=== PATIENT | male | born 1975 | race Caucasian/White ===

== ENCOUNTER 2017-08-20 04:02 | Inpatient (IN) | payer OTHER ==
[~2017-08-20] VITALS: Ht 180.3 cm; Wt 117.9 kg
[2017-08-20] VITALS (17 sets, daily range): BP systolic 107–170; BP diastolic 69–88
[~2017-08-20 04:02] MED LIST: ASPIRIN325 PO; CARVEDILOL12.5 MG PO; CELEXA40 MG PO; CLONIDINE0.1 PO; DEPO-TESTO100 MG/1 M IM; DEPO-TESTO200 MG/1 M IM; FISH OIL 1,001000 M2 PO; GEMFIBROZIL 60600 M1 PO; GLUCOPHAGE1000 MG PO; INVOKANA300 MG PO; KEFLEX500 MG PO; LASIX 20 MG TAB20 MG PO; LEVOTHYROXINE0.05 MG PO; LIPOFEN150 MG PO; LISINOPRIL20 MG PO; MUCINEX TA600 MG/TA2 PO; NAPROSYN500 MG PO; NORCO 5-325 TA1 EACH; NORCO 5-325 TA1 EACH PO; OMEGA-31000 M1 PO; OMEPRAZOLE40 MG PO; PRILOSEC40 MG PO; RISPERDAL2 MG PO; SIMVASTATIN40 MG PO; SYNTHROID75 MCG PO; TRICOR145 MG PO; TYLENOL325 MG PO; UNICOMPLEX M TA1 TA1 PO; ZESTORETIC 20-1 EAC2 PO; ZESTORETIC 20-1 EAC3 PO
[2017-08-20] MEDS ORDERED: HUMALOG100 UNIT/1 SUBQ (04:09)
[2017-08-20 04:21] LABS: ABSOLUTE BASOPHILS 0.1 thou/uL (0.0-0.2); ABSOLUTE EOSINOPHILS 0.1 thou/uL (0.0-0.7); ABSOLUTE LYMPHOCYTES 2.7 thou/uL (0.8-5.3); ABSOLUTE MONOCYTES 0.7 thou/uL (0.0-1.2); ABSOLUTE NEUTROPHILS 4.3 thou/uL (1.6-8.1); EOSINOPHILS 1.9 %; HEMATOCRIT 48.5 % (42.0-52.0); HEMOGLOBIN 16.9 gm/dL (14.0-18.0); LYMPHOCYTES 33.5 %; MCH 25.8 pg (26.0-34.0); MCHC 34.8 g/dL (28.0-37.0); MCV 73.9 fL (80.0-100.0); MONOCYTES 9.3 %; MPV 7.4 fl. (7.2-11.1); NUCLEATED RBCS 0 /100WBC; PLATELET COUNT* 352 thou/uL (150-400); POLYS 54.3 %; RBC 6.56 mil/uL (4.50-6.00); RDW-CV 16.7 % (10.5-14.5)
[2017-08-20 05:17] LABS: POTASSIUM 4.5 mmol/L (3.5-5.1)
[2017-08-20 06:31] LABS: ALBUMIN 3.6 g/dL (3.4-5.0); CALCIUM 6.3 mg/dL (8.5-10.1); TOTAL BILIRUBIN 0.4 mg/dL (<0.1-1.0); TOTAL PROTEIN 5.5 g/dL (6.4-8.2)
[2017-08-20 06:32] LABS: TROPONIN-I LEVEL 0.06 ng/mL (<0.06)
[2017-08-20 11:19] LABS: INR 0.9; PROTIME 11.8 Seconds (9.20-11.50)
--- NOTE | 2017-08-20 12:45 | NUR ---
PT ARRIVED ON THE UNIT ASSESSED AND DOCUMENTED. REPORT TAKEN FROM DURAL MECHANICCLIVE IVAN. PT IS ACCOMPANIED BY HIS LIVE IN GIRLFRIEND. HE IS A&O WITH NO C/O PAIN. NS AT 100 PER HOUR. PT IS TRACING ST ON CARDIAC MONITER WITH PVC'S HR 110. PT C/O FATIGUE. HE IS ON ROOM AIR. PT REFUSES SCD'S. FALL PROTOCOL SIGNED. BED IN LOW POSITION CALL LIGHT IS IN REACH.WM.
--- NOTE | 2017-08-20 18:11 | NUR ---
ASSUMED CARE OF PT ASSESSED AND DOCUMENTED. SEE CHART. PT TAKEN TO THE MATERIAL CREW SUPERVISOR AND IS NOW ON POST CATH MONITERING. PT HAD 1 STENT PLACED THROUGH THR R RADIAL. PT IS TO BE NPO TONIGHT FOR STENT PLACEMENT TOMORROW. METFORMIN IS TO BE HELD FOR 48 HOURS AFTER. PT HAS FAMILY AT [place]IDE. EDUCATION GIVEN ON DEMAND. HOURLY ROUNDING COMPLETE.VSS WNL.
--- NOTE | 2017-08-20 18:23 | 2DMMODE ---
[place] [address] 2 D/M-MODE ECHOCARDIOGRAM Name: KYLE LBAIR Room: [address] IN [facility]#: [id number] Admission: 08/20/17 Attend Phys: Darian Mckee, Discharge: Date of : 73 Date of Service: 08/20/17 1823 Report #: [id number] THIS REPORT FOR: //name// APPROVED REPORT Study performed: 08/20/2017 14:25:17 EXAM: Comprehensive 2D, Doppler, and color-flow Echocardiogram Patient Location: In-Patient Room #: [facility] Status: routine BSA: 2.36 HR: 101 bpm BP: 107/75 mmHg Rhythm: NSR Other Information Study Quality: Good Indications Dyspnea 2D Dimensions LVEF(%): 77.78 (>50%) IVSd: 11.88 (7-11mm) LVOT Diam: 21.33 (18-24mm) LVDd: 41.95 mm PWd: 9.77 (7-11mm) Ascending Ao: 30.48 (22-36mm) LVDs: 22.64 (25-40mm) Aortic Root: 29.55 mm Carcamo's LVEF: 77.78 % Volumes Left Atrial Volume (Systole) LA ESV Index: 22.60 mL/m2 Aortic Valve AoV Peak Marc.: 1.30 m/s AO Peak Gr.: 6.71 mmHg LVOT Max P.78 mmHg AO Mean Gr.: 4.10 mmHg LVOT Mean P.91 mmHg LVOT Max V: 1.48 m/s AO V2 VTI: 21.77 cm LVOT Mean V: 0.90 m/s CLAUDIA (VTI): 4.12 cm2 LVOT V1 VTI: 25.06 cm Mitral Valve E/A Ratio: 1.11 [place] [address] 2 D/M-MODE ECHOCARDIOGRAM Name: KYLE BLAIR Room: [address] IN .R.#: [id number] Admission: 08/20/17 Attend Phys: Darian Mckee, Discharge: Date of : 73 Date of Service: 08/20/17 1823 Report #: [id number] MV Decel. Time: 292.14 ms MV E Max Marc.: 0.74 m/s MV PHT: 84.72 ms MVA (PHT): 2.60 cm2 TDI E/Lateral E': 3.89 E/Medial E': 8.22 Medial E' Marc.: 0.09 m/s Lateral E' Marc.: 0.19 m/s Pulmonary Valve PV Peak Marc.: 1.08 m/s PV Peak Gr.: 4.71 mmHg Left Ventricle The left ventricle is normal size. There is normal LV segmental wall motion. Borderline concentric left ventricular hypertrophy. Left ventricular systolic function is normal. The left ventricular ejection fraction is within the normal range. LVEF is 65%. The left ventricular diastolic function is normal. Right Ventricle The right ventricle is normal size. The right ventricular systolic function is normal. Atria The left atrium size is normal. The right atrium size is normal. Aortic Valve Aortic valve leaflets are mildly thickened. No aortic regurgitation is present. There is no aortic valvular stenosis. Mitral Valve The mitral valve is normal in structure. Trace mitral regurgitation. No evidence of mitral valve stenosis. Tricuspid Valve The tricuspid valve is normal in structure. Unable to assess PA pressure. Trace tricuspid regurgitation. Pulmonic Valve The pulmonary valve is normal in structure. There is no pulmonic valvular regurgitation. Great Vessels The aortic root is normal in size. IVC [place] [address] 2 D/M-MODE ECHOCARDIOGRAM Name: ROSSYKYLE MILLER Jaycob Room: [address] IN [facility]#: [id number] Admission: 08/20/17 Attend Phys: Darian Mckee, Discharge: Date of : 73 Date of Service: 08/20/17 1823 Report #: [id number] collapses with >50% inspiration Pericardium There is no pericardial effusion. <Conclusion> The left ventricle is normal size. Borderline concentric left ventricular hypertrophy. Left ventricular systolic function is normal. The left ventricular ejection fraction is within the normal range. LVEF is 65%. The right ventricle is normal size. The left atrium size is normal. Aortic valve leaflets are mildly thickened. No aortic regurgitation is present. There is no aortic valvular stenosis. The mitral valve is normal in structure. Trace mitral regurgitation. The tricuspid valve is normal in structure. IVC is normal in size and collapses with >50% inspiration There is no pericardial effusion. There is normal LV segmental wall motion. <ELECTRONICALLY SIGNED> By: Michael Burnham MD, FACC 08/20/171822 22 22 Michael Burnham MD, FACC /INF
[2017-08-21] VITALS (14 sets, daily range): BP systolic 118–140; BP diastolic 68–93
[2017-08-21 05:22] LABS: HEMATOCRIT 45.7 % (42.0-52.0); HEMOGLOBIN 15.1 gm/dL (14.0-18.0); MCH 24.4 pg (26.0-34.0); MCV 73.9 fL (80.0-100.0); MPV 7.2 fl. (7.2-11.1); RBC 6.18 mil/uL (4.50-6.00); RDW-CV 16.8 % (10.5-14.5); WBC 7.3 thou/uL (4.0-11.0)
[2017-08-21 05:49] LABS: ALBUMIN 3.4 g/dL (3.4-5.0); ALKALINE PHOSPHATASE 42 U/L (46-116); ANION GAP 12 mmol/L (7-16); BUN 20 mg/dL (7-18); CHLORIDE 98 mmol/L (98-107); CO2 22 mmol/L (21-32); CREATININE 0.9 mg/dL (0.6-1.3); POTASSIUM 3.9 mmol/L (3.5-5.1); SODIUM 132 mmol/L (136-145); TOTAL BILIRUBIN 0.7 mg/dL (<0.1-1.0); TROPONIN-I LEVEL <0.06 ng/mL (<0.06)
[2017-08-21 06:01] LABS: CHOLESTEROL 275 mg/dL (<200); HDL CHOLESTEROL 16 mg/dL (>40); MAGNESIUM 1.7 mg/dL (1.8-2.4); TC:HDL 17.2 Ratio (Not establshd)
[2017-08-21 06:06] LABS: CMV IgM Abs <30.0 AU/mL (0.0-29.9)
[2017-08-21 06:13] LABS: TRIGLYCERIDE 3025 mg/dL (<150); VLDL 605 mg/dL (<40)
[2017-08-21 06:14] LABS: LDL CHOLESTEROL ND mg/dL (<100)
[2017-08-21 06:15] LABS: SERUM ASSESSMENT Moderate Lipemia
--- NOTE | 2017-08-21 06:16 | NUR ---
ASSUMED CARE OF PATIENT AT 1900 THE PATIENT REMAINS SR ON THE MONITOR O2 SAT MAINTAINED ON RA UTILIZES HOME C/BIPAP AT NIGHT CONTINUES TO BE UP AD BERTRAM POST CARDIAC CATH PROCEDURE PROTOCOL ELEVATED BLOOD GLUCOSE AT HS METFORMIN PRESENTLY BEING HELD PER PATIENT, PATIENT REPORTS USE OF LONG ACTING INSULIN AT HOME ET STATES PRIOR TO ACCU CHECK HE WAS EATING GRILLED CHICKEN NUGGETS AND DIPPING SAUCE ALSO HAS AN EXTRA LARGE FOUNTAIN DRINK AT BEDSIDE THE ROUTINE REGIMEN CONTINUES TO BE EFFECTIVE FOR SX MANAGEMENT THE PATIENT IS PROGRESSING TOWARDS GOALS HE IS WITHOUT S/SX OF ACUTE DISTRESS SAFETY INTERVENTIONS CONTINUE BED LOWERED WHEELS LOCKED CALL LIGHT IN REACH SIDE RAILS UP REPORT TO BE GIVEN TO ONCOMING RN
[2017-08-21 06:39] LABS: SGPT 23 U/L (30-65)
[2017-08-21 06:44] LABS: GLUCOSE 283 mg/dL (70-99)
[2017-08-21 07:05] LABS: SGOT 19 U/L (15-37)
--- NOTE | 2017-08-21 09:28 | NUR ---
ASSUMED CARE OF PATIENT AFTER REPORT THIS MORNING. PATIENT SLEEPING, EASY TO AROUSE, ORIENTED APPROPRIATELY. PHYSICAL ASSESSMENT COMPLETED AND CHARTED. VITAL SIGNS STABLE. OXYGEN SATURATION WITHIN NORMAL LIMITS ON CPAP. SCHEDULED MEDICATIONS HELD DUE TO NPO STATUS FOR CATHATERIZATION THIS MORNING. PATIENT TRANSFERS AND AMBUALTES INDEPENDENTLY WITHOUT DIFFICULTY. USES CALL LIGHT APPROPRIATELY. TRANSFERRED TO TOLL TEST DESK WORKER THIS MORNING AT 0839 FOR PROCEDURE. NURSING WILL CONTINUE TO MONITOR WHEN PATIENT RETURNS TO ROOM.
[2017-08-21] MEDS ORDERED: LEVEMIR SUBQ (10:33)
--- NOTE | 2017-08-21 11:27 | CARD ---
[address] [address] CARDIAC CATH REPORT Name: KYLE BLAIR Room: [address] IN .R.#: [id number] Admission: 08/20/17 Attend Phys: Darian Mckee MD Discharge: Date of : 73 Report #: [id number] THIS REPORT FOR: //name// APPROVED REPORT Study performed: 08/20/2017 16:10:23 Patient Details Patient Status: In-Patient Room #: 232 The patient is a 42 year-old male Event Personnel Michael Burnham Putaway Driver, Juanita Jones RN Seasonal Tax Preparer, Loyda Szymanski RN Seasonal Tax Preparer, Ryder Bain (R) Monitor, Darian Arambula Scrub Procedures Performed DEONTE Place w/wo Plasty Single LAD; left heart catheterization and selective coronary arteriography Indication Unstable angina Risk Factors Family History, Hypercholesterolemia, Hypertension Admission/Lab Medications/Medications given during procedure Aspirin, Platelet Aff. Inhib., Angiomax bolus and infusion Procedure Narrative The patient was brought electively to the Cardiac Catheterization Laboratory and was prepped and draped in a sterile manner. The right wrist was infiltrated with 1% Lidocaine subcutaneous anesthesia. A Slender Glidesheath sheath was inserted into the Right Radial Artery. Coronary angiography was performed using coronary diagnostic catheters. The right coronary system was accessed and visualized with a Diagnostic JR4 catheter. The left coronary system was accessed and visualized with a Diagnostic JL 3.5 catheter. The left ventricle was accessed and visualized with a Diagnostic catheter. Left ventricular/Aortic Valve gradient assessed via catheter pullback. Closure device was deployed with a Fr Vasc-Band Lng 27cm. The patient tolerated the procedure well and there were no complications associated with the procedure. There was no hematoma[place] [address] CARDIAC CATH REPORT Name: ROSSYKYLE Room: [address] IN [facility]#: [id number] Admission: 08/20/17 Attend Phys: Darian Mckee MD Discharge: Date of : 73 Report #: [id number] Sedation start time: 16:48 Case end Time: 17:33 Fentanyl 50 mcg Versed 2 mg Fluoro Time: 13.5 minutes Dose: DAP 946146 cGycm2 2171 mGy Contrast Type and Amount: Visipaque 235 ml Coronary Angiography The patient's coronary anatomy is right dominant. Diagnostic Cath Left Main 0% narrowing LAD 80% mid LAD stenosis Circumflex 0% narrowing Right Coronary Large dominant vessel was 75% distal narrowing before the takeoff of the posterior descending branch with 60% ostial posterior lateral branch narrowing and 75% tubular mid posterolateral branch narrowing Hemodynamics The aortic pressure is 97/71 mmHg with a mean of 81 mmHg. The left ventricular pressure is 81/3 mmHg with a mean of mmHg. The left ventricular end diastolic pressure is 8 mmHg. There was no gradient across the aortic valve upon pullback. PCI Technique Lesion Anticoagulation was achieved with Angiomax. Patient was preloaded with Angiomax IV 18 ml. Percutaneous coronary intervention was performed on the proximal left anterior descending artery segment. The lesion stenosis prior to intervention was 80% with EDISON 3 flow. A 6F XB LAD 3.5 Guide Catheter was used to engage the ostium. A IG: ProwaterFlex 180CM Interventional Guidewire was used to cross the lesion. BALLOON DILATION A Balloon catheter Trek RX 2.5 X 12 was inserted and inflated up to 10.00atm for 10seconds. Additional Inflation: 10.00atm for 8seconds. STENT DEPLOYMENT A drug-eluting stent Xience Alpine RX 2.5X18 was inserted and inflated up to 12.00atm for 13seconds. Additional Inflation: 14.00atm for 9seconds. Additional Inflation: 14.00atm for 9seconds. Final angiography reveals 5 % stenosis with EDISON 3 [place] [address] CARDIAC CATH REPORT Name: KYLE BLAIR Room: [address] IN [facility]#: [id number] Admission: 08/20/17 Attend Phys: Darian Mckee MD Discharge: Date of : 73 Report #: [id number] flow. Conclusion #1 significant coronary artery disease characterized by the following: A 80 % mid LAD stenosis B large dominant right coronary artery with 75% distal narrowing, 60% narrowing at the takeoff of the posterior lateral branch and 75% tubular mid posterior lateral branch narrowing #2 normal left-sided hemodynamics study #3 successful percutaneous coronary intervention with deployment of a drug-eluting stent at the site of 80% mid LAD stenosis with 0% residual narrowing and EDISON-3 flow to the distal vessel Recommendations Cardiac Risk Reduction Program Aggressive Medical Therapy Medications Administered Aspirin (any) Prasugrel Diagnostic Cath Approved by: Michael Burnham MD Date/Time: 08/21/17 1125 hrs. <ELECTRONICALLY SIGNED> By: Michael Burnham MD, [facility] 08/21/17 1127 26 26Michael Burnham MD, FAC /INF
--- NOTE | 2017-08-21 12:41 | EKG ---
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: MR : 1975 Requested By: Niurka Nunez Order Number: [id number] MD: Paolo Rowell Measurements Intervals [place] Rate: 176 P: 0 AR: QRS: 70 QRSD: 82 T: -64 QT: 244 QTc: 418 Interpretive Statements Supraventricular tachycardia Repolarization abnormality, prob rate related Baseline wander in lead(s) V3 Compared to ECG 10/13/2015 16:10:15 rate increased Electronically Signed On 08-21-2017 12:41:27 CDT by Paolo Rowell [email or web address] <ELECTRONICALLY SIGNED> By: Paolo Rowell MD, [facility] 08/21/17 1241 0406 0406 aPolo Rowell MD, [facility] /EPI
--- NOTE | 2017-08-21 12:47 | EKG ---
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 : 1975 Requested By: Niurka Nunez Order Number: [id number] Shruthi MD: Paolo Rowell Measurements Intervals [place] Rate: 112 P: 60 OK: 150 QRS: 68 QRSD: 87 T: -43 QT: 294 QTc: 402 Interpretive Statements Sinus tachycardia Probable left atrial enlargement Borderline T abnormalities, inferior leads Baseline wander in lead(s) V4 Compared to ECG 10/13/2015 16:10:15 rate slowed Electronically Signed On 08-21-2017 12:47:20 CDT by Paolo Rowell [email or web address] <ELECTRONICALLY SIGNED> By: Paolo Rowell MD, [facility] 08/21/17 1247 0422 0422 Paolo Rowell MD, [facility] /EPI
--- NOTE | 2017-08-21 14:03 | EKG ---
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
--- NOTE | 2017-08-21 14:08 | EKG ---
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
--- NOTE | 2017-08-21 14:41 | NUR ---
MET WITH PT TO DISCUSS HOME SITUATION/DC PLANNING. PT LIVES WITH S/O AND DTR. HE WORKS AND IS INDEPENDENT AND ACTIVE. DENIES ANY DC NEEDS.
--- NOTE | 2017-08-21 18:15 | NUR ---
PATIENT REMAINS ALERT AND ORIENTED APPROPRIATELY. POST CATH VITAL SIGNS AND BEDREST COMPLETED. VITAL SIGNS STABLE. PATIENT IS UP AD BERTRAM AT THIS TIME. VOIDED POST CATH 800 ML WITH URINAL. ALSO HAD BOWEL MOVEMENT. DENIES NEEDS AT THIS TIME. CALL LIGHT WITHIN REACH. NURSING WILL CONTINUE TO MONITOR.
[2017-08-22] VITALS: BP 109/60
[2017-08-22 04:00] VITALS: BP 107/72
[2017-08-22 05:15] LABS: HEMATOCRIT 45.3 % (42.0-52.0); HEMOGLOBIN 14.5 gm/dL (14.0-18.0); MCH 24.2 pg (26.0-34.0); MCV 75.6 fL (80.0-100.0); MPV 7.6 fl. (7.2-11.1); RDW-CV 16.7 % (10.5-14.5); WBC 6.8 thou/uL (4.0-11.0)
[2017-08-22 05:42] LABS: ALBUMIN 3.3 g/dL (3.4-5.0); ALKALINE PHOSPHATASE 45 U/L (46-116); ANION GAP 9 mmol/L (7-16); BUN 14 mg/dL (7-18); CALCIUM 7.9 mg/dL (8.5-10.1); CHLORIDE 101 mmol/L (98-107); CO2 23 mmol/L (21-32); CREATININE 0.8 mg/dL (0.6-1.3); GLUCOSE 231 mg/dL (70-99); POTASSIUM 4.1 mmol/L (3.5-5.1); SGPT 25 U/L (30-65); SODIUM 133 mmol/L (136-145); TOTAL BILIRUBIN 0.8 mg/dL (<0.1-1.0); TOTAL PROTEIN 6.6 g/dL (6.4-8.2); TROPONIN-I LEVEL <0.06 ng/mL (<0.06)
[2017-08-22 06:43] LABS: SGOT 24 U/L (15-37)
[2017-08-22 08:00] VITALS: BP 114/72
--- NOTE | 2017-08-22 10:53 | CARD ---
[address] [address] CARDIAC CATH REPORT Name: KYLE BLAIR Jaycob Room: [address] IN .R.#: [id number] Admission: 08/20/17 Attend Phys: Darian Mckee MD Discharge: Date of : 73 Report #: [id number] THIS REPORT FOR: //name// APPROVED REPORT Study performed: 08/21/2017 08:19:47 Patient Details The patient is a 42 year-old male Event Personnel Michael Burnham Histology Supervisor, Almaz Owen RN Director Of Knowledge Management, Ryder Bain (R) Monitor, Asia Guajardo RTR Scrub Procedures Performed Art Access - R femoral artery* , Left Heart CatheterizationHemostasis w/ Angioseal DEONTE Place w/wo Plasty Single RCA [id number] Indication Unstable angina Risk Factors Family History, Hypercholesterolemia, Hypertension Previous Procedures/Diagnoses Previous PCI Admission/Lab Medications/Medications given during procedure Aspirin, Platelet Aff. Inhib., Angiomax bolus and infusion Procedure Narrative The patient was brought electively to the Cardiac Catheterization Laboratory and was prepped and draped in a sterile manner. The right femoral was infiltrated with 1% Lidocaine subcutaneous anesthesia. A [place] 6 FR sheath was inserted into the . Coronary angiography was performed using coronary diagnostic catheters. The right coronary system was accessed and visualized with a 6fr JR4 catheter. The left coronary system was accessed and visualized with a 6Fr JL4 catheter. The left ventricle was accessed and visualized with a 6Fr straight Pigtail catheter. Left ventricular/Aortic Valve gradient assessed . Closure device was deployed with a 6 Fr Angioseal STS 6Fr. The patient tolerated the procedure well and there were no complications associated with the procedure. [place] [address] CARDIAC CATH REPORT Name: KYLE BLAIR Jaycob Room: [address] IN [facility]#: [id number] Admission: 08/20/17 Attend Phys: Darian Mckee MD Discharge: Date of : 73 Report #: [id number] Intraoperative Conscious Sedation Fentanyl 50 mcg Versed 2 mg Dose: 2113 mGy Contrast Type and Amount: Visipaque 170 ml Coronary Angiography The patient's coronary anatomy is right dominant. Diagnostic Cath Left Main 0% narrowing LAD Widely patent mid LAD stent with 30% ostial second diagonal narrowing Circumflex 0% narrowing Right Coronary Dominant vessel with 40% mid vessel narrowing and 75% irregular narrowing before the takeoff of the posterior descending branch. There was 60% ostial posterolateral branch narrowing and 80% distal posterolateral branch narrowing Left Ventriculography Left Ventriculography was not performed. Hemodynamics The aortic pressure is 113/74 mmHg with a mean of 80 mmHg. The left ventricular pressure is 110/0 mmHg with a mean of mmHg. The left ventricular end diastolic pressure is 7 mmHg. There was no gradient across the aortic valve upon pullback. PCI Technique Lesion Anticoagulation was achieved with Angiomax. Patient was preloaded with Angiomax IV 18 ml. Percutaneous coronary intervention was performed on the distal right coronary artery. The lesion stenosis prior to intervention was 75% with EDISON 3 flow. A 6Fr AR 1 Guide Catheter was used to engage the ostium. A IG: ProwaterFlex 180CM Interventional Guidewire was used to cross the lesion. BALLOON DILATION A Balloon catheter Trek RX 2.5 X 12 was inserted and inflated up to 14.00atm for 15seconds. STENT DEPLOYMENT A stent Xience Alpine RX 2.75X12 was inserted and inflated up to 12.00atm for 13seconds. Additional Inflation: 14.00atm for 12seconds. Final angiography reveals 0 % stenosis with EDISON 3 [place] [address] CARDIAC CATH REPORT Name: KYLE BLAIR Room: [address] IN [facility]#: [id number] Admission: 08/20/17 Attend Phys: Darian Mckee MD Discharge: Date of : 73 Report #: [id number] flow. Conclusion #1 significant coronary artery disease characterized by the following: A widely patent mid LAD stent with 30% ostial second diagonal narrowing B dominant right coronary artery with 40% mid vessel narrowing and 75% irregular narrowing before the takeoff of the posterior descending branch; there was 60% ostial posterolateral branch narrowing and 80% distal posterolateral branch narrowing #2 normal left-sided hemodynamic study #3 successful percutaneous coronary intervention with deployment of a drug-eluting stent at the site of 75% distal right coronary stenosis with 0% residual narrowing and EDISON-3 flow to the distal vessel Recommendations Cardiac Risk Reduction Program Aggressive Medical Therapy Medications Administered Aspirin (any) Prasugrel Diagnostic Cath Approved by: Michael Burnham MD Date/Time: 08/22/17) 1052 hrs. <ELECTRONICALLY SIGNED> By: Michael Burnham MD, [facility] 08/22/17 1053 1053 1053Michael Burnham MD, FAC /INF
[2017-08-22 11:51] VITALS: BP 144/95
[2017-08-22] MEDS ORDERED: METOPROLOL SUCC25 M1 PO (12:32)
[2017-08-22] MEDS ORDERED: EFFIENT10 MG PO (12:32)
[2017-08-22] MEDS ORDERED: ATORVASTATIN CA40 MG PO (12:35)
[2017-08-22] MEDS ORDERED: ASPIR 8181 MG PO (12:36)
--- NOTE | 2017-08-22 12:50 | EKG ---
[place] [address] ELECTROCARDIOGRAM REPORT Name: KYLE BLAIR Room: [address] ADM IN M.R.#: [id number] Admission: 08/20/17 Attend Phys: Darian Mckee MD Discharge: Date of : 73 Report #: [id number] THIS REPORT FOR: //name// [facility] Test Date: 2017-08-22 Test Time: 08:07:09 Pat Name: KYLE BLAIR Department: Room: [address] Gender: M Rn Emergency Room: : 1975 Requested By: Michael Burnham Order Number: [id number] Reading MD: Robert Treviño Measurements Intervals [place] Rate: 94 P: 70 AR: 158 QRS: 55 QRSD: 86 T: 15 QT: 333 QTc: 417 Interpretive Statements Sinus rhythm ST elev, probable normal early repol pattern Compared to ECG 08/21/2017 11:22:50 No significant changes Electronically Signed On 08-22-2017 12:50:18 CDT by Robert Treviño [email or web address] <ELECTRONICALLY SIGNED> By: Robert Treviño MD, [facility] 08/22/17 1250 0807 0807 Robert Treviño MD, [facility] /EPI
[2017-08-22 12:59] VITALS: BP 123/84
[2017-08-22] MEDS ORDERED: NITROGLYCERIN0.4 MG SUBLING (14:02)
--- NOTE | 2017-08-22 14:31 | NUR ---
ASSUMED CARE OF PT THIS AM ASSESSED AND DOCUMENTED. SEE CHART. PT D/C'D TO HOME. ALL CONSULTS OK WITH D/C. PT D/C'D IV. EDUCATION GIVEN. CARDIAC MONITER D/C'D. EDUCATION GIVEN RE FOLLOW-UPS, MEDICATIONS, AND DR ORDERS. SCRIPTS GIVEN. CALLED IN SCRIPT TO [employer] FOR NITR SUBLING PER DR CHOW REQUEST. SPOKE WITH PHARMACIST MO. ALL BELONGINGS PACKED UP AND LEFT WITH PT ACCOMPANIED BY GIRLFRIEND.
== END 2017-08-22 14:55 | disposition home or self-care (01) | DRG 247 ==
LOC: M.ERS 04:02 → M.TBA-ER 06:58 → M.2W 06:58
PROVIDERS: Internal Medicine; Personal Emergency Response Attendant; ADMIT Internal Medicine
DX: I47.1 Supraventricular tachycardia (principal); K86.1 Other chronic pancreatitis; I50.32 Chronic diastolic (congestive) heart failure; E11.65 Type 2 diabetes mellitus with hyperglycemia; E78.1 Pure hyperglyceridemia; I11.0 Hypertensive heart disease with heart failure; I25.10 Atherosclerotic heart disease of native coronary artery without angina pectoris; E78.00 Pure hypercholesterolemia, unspecified; E03.9 Hypothyroidism, unspecified; G25.81 Restless legs syndrome; Z90.49 Acquired absence of other specified parts of digestive tract; Z87.891 Personal history of nicotine dependence; Z79.4 Long term (current) use of insulin; Z79.899 Other long term (current) drug therapy; Z82.49 Family history of ischemic heart disease and other diseases of the circulatory system

== ENCOUNTER 2017-09-20 18:16 | Emergency (ER) | payer OTHER ==
[~2017-09-20] VITALS: Ht 180.3 cm; Wt 102.1 kg
[~2017-09-20 18:16] MED LIST changes: +ASPIR 8181 MG PO; +ATORVASTATIN CA40 MG PO; +EFFIENT10 MG PO; +HUMALOG100 UNIT/1 SUBQ; +LEVEMIR SUBQ; +METOPROLOL SUCC25 M1 PO; +NITROGLYCERIN0.4 MG SUBLING
[2017-09-20] MEDS ORDERED: FISH OIL 1,001000 M2 PO (18:23)
[2017-09-20 19:22] LABS: ABSOLUTE BASOPHILS 0.1 thou/uL (0.0-0.2); ABSOLUTE EOSINOPHILS 0.1 thou/uL (0.0-0.7); ABSOLUTE LYMPHOCYTES 2.1 thou/uL (0.8-5.3); ABSOLUTE MONOCYTES 0.7 thou/uL (0.0-1.2); ABSOLUTE NEUTROPHILS 5.1 thou/uL (1.6-8.1); EOSINOPHILS 1.6 %; HEMATOCRIT 45.2 % (42.0-52.0); HEMOGLOBIN 15.7 gm/dL (14.0-18.0); LYMPHOCYTES 25.8 %; MCH 25.8 pg (26.0-34.0); MCHC 34.8 g/dL (28.0-37.0); MCV 74.3 fL (80.0-100.0); MONOCYTES 8.5 %; MPV 7.4 fl. (7.2-11.1); NUCLEATED RBCS 0 /100WBC; PLATELET COUNT* 353 thou/uL (150-400); POLYS 63.1 %; RBC 6.08 mil/uL (4.50-6.00); RDW-CV 17.9 % (10.5-14.5); WBC 8.1 thou/uL (4.0-11.0)
[2017-09-20 20:21] LABS: ALBUMIN 4.1 g/dL (3.4-5.0); CALCIUM 8.8 mg/dL (8.5-10.1); POTASSIUM 4.4 mmol/L (3.5-5.1); TOTAL BILIRUBIN 0.5 mg/dL (<0.1-1.0); TOTAL PROTEIN 6.8 g/dL (6.4-8.2)
[2017-09-20] MEDS ORDERED: NORCO 5-325 TA1 EAC1 PO (21:27)
[2017-09-20 21:46] VITALS: BP 103/64
== END 2017-09-20 21:47 | disposition home or self-care (01) ==
LOC: M.ERS 18:16
PROVIDERS: Nurse Practitioner Family
DX: S82.52XA Displaced fracture of medial malleolus of left tibia, initial encounter for closed fracture (principal); S20.212A Contusion of left front wall of thorax, initial encounter; E11.9 Type 2 diabetes mellitus without complications; I10 Essential (primary) hypertension; E78.00 Pure hypercholesterolemia, unspecified; E03.9 Hypothyroidism, unspecified; Z90.49 Acquired absence of other specified parts of digestive tract; G47.30 Sleep apnea, unspecified; X58.XXXA Exposure to other specified factors, initial encounter; Y93.89 Activity, other specified; Y92.89 Other specified places as the place of occurrence of the external cause; Y99.8 Other external cause status

== ENCOUNTER 2017-09-26 15:41 | Emergency (ER) | payer OTHER ==
[~2017-09-26] VITALS: Ht 180.3 cm; Wt 104.3 kg
[~2017-09-26 15:41] MED LIST changes: +NORCO 5-325 TA1 EAC1 PO
[2017-09-26 16:34] LABS: ABSOLUTE BASOPHILS 0.1 thou/uL (0.0-0.2); ABSOLUTE EOSINOPHILS 0.1 thou/uL (0.0-0.7); ABSOLUTE LYMPHOCYTES 1.7 thou/uL (0.8-5.3); ABSOLUTE MONOCYTES 0.7 thou/uL (0.0-1.2); ABSOLUTE NEUTROPHILS 3.7 thou/uL (1.6-8.1); BASOPHILS 1.1 %; EOSINOPHILS 1.7 %; HEMATOCRIT 44.4 % (42.0-52.0); LYMPHOCYTES 27.2 %; MCH 24.9 pg (26.0-34.0); MCHC 33.7 g/dL (28.0-37.0); MCV 73.8 fL (80.0-100.0); MONOCYTES 10.7 %; MPV 7.3 fl. (7.2-11.1); NUCLEATED RBCS 0 /100WBC; PLATELET COUNT* 312 thou/uL (150-400); POLYS 59.3 %; RBC 6.02 mil/uL (4.50-6.00); RDW-CV 17.3 % (10.5-14.5); WBC 6.3 thou/uL (4.0-11.0)
[2017-09-26 16:41] LABS: ANION GAP 12 mmol/L (7-16); BUN 24 mg/dL (7-18); CALCIUM 8.9 mg/dL (8.5-10.1); CHLORIDE 94 mmol/L (98-107); CO2 23 mmol/L (21-32); CREATININE 1.3 mg/dL (0.6-1.3); POTASSIUM 4.1 mmol/L (3.5-5.1); SODIUM 129 mmol/L (136-145)
[2017-09-26 16:48] LABS: ALBUMIN 3.9 g/dL (3.4-5.0); ALKALINE PHOSPHATASE 51 U/L (46-116); TOTAL BILIRUBIN 0.6 mg/dL (<0.1-1.0); TOTAL PROTEIN 7.5 g/dL (6.4-8.2); TROPONIN-I LEVEL <0.06 ng/mL (<0.06)
[2017-09-26 17:03] LABS: GLUCOSE 281 mg/dL (70-99); SGPT 24 U/L (30-65)
[2017-09-26 17:04] LABS: SGOT 15.6 U/L (15-37)
[2017-09-26] MEDS ORDERED: NORCO 5-325 TA1 EACH PO (17:11)
[2017-09-26] MEDS ORDERED: ZANAFLEX4 MG PO (17:12)
[2017-09-26 17:28] VITALS: BP 118/78
--- NOTE | 2017-09-27 12:40 | EKG ---
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1975 Requested By: Brandee Elizondo Order Number: [id number] Reading MD: Sunny Quiroga Measurements Intervals [place] Rate: 92 P: 65 MS: 156 QRS: 50 QRSD: 89 T: 16 QT: 329 QTc: 407 Interpretive Statements Sinus rhythm Borderline T wave abnormalities Minimal ST elevation, early repolarization Compared to ECG 08/22/2017 08:07:09 T-wave abnormality now present ST (T wave) deviation still present Electronically Signed On 09-27-2017 12:40:10 CDT by Sunny Quiroga [email or web address] <ELECTRONICALLY SIGNED> By: Sunny Quiroga MD, [facility] 09/27/17 1240 1547 1547 Sunny Quiroga MD, [facility] /EPI
== END 2017-09-26 17:29 | disposition home or self-care (01) ==
LOC: M.ERS 15:41
PROVIDERS: Nurse Practitioner Family
DX: M94.0 Chondrocostal junction syndrome [Tietze] (principal); I48.91 Unspecified atrial fibrillation; Z90.49 Acquired absence of other specified parts of digestive tract; Z79.4 Long term (current) use of insulin

== ENCOUNTER → 2018-08-05 | Outpatient (CLI) | payer OTHER ==
[~2018-08-05] MED LIST changes: +ZANAFLEX4 MG PO
== END ==
LOC: M.RAD 10:48
DX: M48.56XA Collapsed vertebra, not elsewhere classified, lumbar region, initial encounter for fracture (principal); M43.8X8 Other specified deforming dorsopathies, sacral and sacrococcygeal region; M51.34 Other intervertebral disc degeneration, thoracic region

== ENCOUNTER 2019-02-28 07:12 | Observation (INO) | payer OTHER ==
[~2019-02-28] VITALS: Ht 180.3 cm; Wt 102.1 kg
[2019-02-28] VITALS (13 sets, daily range): BP systolic 91–125; BP diastolic 34–75
[2019-02-28 08:04] LABS: HEMOGLOBIN 16.7 gm/dL (14.0-18.0); MCH 30.8 pg (26.0-34.0); MPV 7.1 fl. (7.2-11.1); RBC 5.44 mil/uL (4.50-6.00); RDW-CV 17.8 % (10.5-14.5); WBC 8.6 thou/uL (4.0-11.0)
[2019-02-28 08:17] LABS: ANION GAP 14 mmol/L (7-16); BUN 26 mg/dL (7-18); CALCIUM 7.8 mg/dL (8.5-10.1); CHLORIDE 89 mmol/L (98-107); CO2 22 mmol/L (21-32); GLUCOSE 416 mg/dL (70-99); POTASSIUM 4.5 mmol/L (3.5-5.1); SODIUM 125 mmol/L (136-145)
[2019-02-28] MEDS ORDERED: FUROSEMIDE 40 M40 M1 PO (08:22)
[2019-02-28] MEDS ORDERED: ISOSORBIDE MONO30 M1 PO (08:23)
[2019-02-28] MEDS ORDERED: ZETIA10 MG PO (08:25)
[2019-02-28 08:29] LABS: ALBUMIN 3.9 g/dL (3.4-5.0); HDL CHOLESTEROL 19 mg/dL (>40); TOTAL BILIRUBIN 1.2 mg/dL (<0.1-1.0)
[2019-02-28] MEDS ORDERED: VITAMIN D350000 UNIT PO (08:29)
[2019-02-28] MEDS ORDERED: VASCEPA1 GM PO (08:30)
[2019-02-28] MEDS ORDERED: ASPIRIN EC325 M1 PO (08:30)
[2019-02-28] MEDS ORDERED: ZENPEP DR 5,001 EAC1 PO (08:31)
[2019-02-28] MEDS ORDERED: FLEXERIL PO (08:32)
[2019-02-28] MEDS ORDERED: ROSUVASTATIN CA40 MG PO (08:32)
[2019-02-28] MEDS ORDERED: FENOFIBRATE160 MG PO (08:33)
[2019-02-28 09:00] LABS: SGOT 38 U/L (15-37)
[2019-02-28 09:01] LABS: ALKALINE PHOSPHATASE 40 U/L (46-116); SGPT 44 U/L (30-65); TOTAL PROTEIN 7.2 g/dL (6.4-8.2)
[2019-02-28 09:06] LABS: SERUM ASSESSMENT Gross Lipemia; TRIGLYCERIDE 4840 mg/dL (<150); VLDL 968 mg/dL (<40)
[2019-02-28 09:12] LABS: CHOLESTEROL 318 mg/dL (<200); LDL CHOLESTEROL ND mg/dL (<100); TC:HDL 16.7 Ratio (Not establshd)
[2019-03-01] VITALS: BP 154/92
[2019-03-01 04:09] VITALS: BP 146/84
[2019-03-01 04:41] LABS: HEMATOCRIT 37.5 % (42.0-52.0); MCH 28.2 pg (26.0-34.0); MCHC 35.4 g/dL (28.0-37.0); MCV 79.7 fL (80.0-100.0); MPV 6.9 fl. (7.2-11.1); RBC 4.7 mil/uL (4.50-6.00); RDW-CV 17.2 % (10.5-14.5); WBC 7.2 thou/uL (4.0-11.0)
--- NOTE | 2019-03-01 04:41 | NUR ---
PT SLEPT MOST OF SHIFT. ASSESSMENT DOCUMENTED. MEDS GIVEN PER E-MAR IV PATENT, FLUIDS INFUSING. NO REPORTS OF PAIN. CATH SITE TO RIGHT GROIN C/D/I. WILL CONTINUE WITH PLAN OF CARE.
[2019-03-01 05:18] LABS: HEMOGLOBIN 13.3 gm/dL (14.0-18.0)
[2019-03-01 05:20] LABS: ALBUMIN 3.4 g/dL (3.4-5.0); ALKALINE PHOSPHATASE 39 U/L (46-116); ANION GAP 12 mmol/L (7-16); BUN 20 mg/dL (7-18); CALCIUM 7.4 mg/dL (8.5-10.1); CHLORIDE 98 mmol/L (98-107); CO2 21 mmol/L (21-32); GLUCOSE 247 mg/dL (70-99); POTASSIUM 4.4 mmol/L (3.5-5.1); SODIUM 131 mmol/L (136-145); TOTAL BILIRUBIN 0.6 mg/dL (<0.1-1.0); TOTAL PROTEIN 6.6 g/dL (6.4-8.2); TROPONIN-I LEVEL <0.06 ng/mL (<0.06)
[2019-03-01 06:29] LABS: SGOT 28 U/L (15-37)
[2019-03-01 06:31] LABS: SGPT 38 U/L (30-65)
[2019-03-01 08:00] VITALS: BP 142/68
[2019-03-01] MEDS ORDERED: LOPRESSOR50 MG PO (10:07)
[2019-03-01] MEDS ORDERED: ASA81BEC PO (10:09)
[2019-03-01] MEDS ORDERED: CRESTOR40 MG PO (10:10)
[2019-03-01] MEDS ORDERED: CATAPRES0.1 MG PO (10:12)
[2019-03-01] MEDS ORDERED: NORCO 5-325 TA1 EAC2 PO (10:17)
[2019-03-01] MEDS ORDERED: HUMALOG100 UNIT/1 SUBQ (10:25)
[2019-03-01] MEDS ORDERED: LEVEMIR100 UNIT/2 SUBQ (10:25)
[2019-03-01] MEDS ORDERED: LEVO-T50 MCG PO (10:27)
[2019-03-01] MEDS ORDERED: ZESTRIL20 MG PO ×2 (10:29→10:30)
[2019-03-01 10:34] VITALS: BP 108/67
--- NOTE | 2019-03-01 10:49 | NUR ---
[facility] CALLED TO VERIFY HOME DOSE OF METOPROLOL. DOSE VERIFIED AND UPDATED ON DISCHARGE PER DR BISHOP. DC INSTRUCTIONS REVIEWED. PT INSTRUCTED TO TAKE ALL OF HIS MEDS HE DID NOT RECEIVE WHEN HE GETS HOME
--- NOTE | 2019-03-01 12:53 | CARD ---
[address] [address] CARDIAC CATH REPORT Name: KYLE BLAIR MARIEL Room: [address] Peg Ramirez#: [id number] Admission: 02/28/19 Attend Phys: Michael Burnham MD, Discharge: 03/01/19 Date of : 73 Report #: [id number] THIS REPORT FOR: //name// APPROVED REPORT Study performed: 02/28/2019 08:13:39 Patient Details Patient Status: Out-Patient Room #: The patient is a 44 year-old male Event Personnel Michael Burnham Paginator, Akiko Watson Engineer Specialist, Dee Montez RTR Scrub, Almaz Owen RN Monitor, Cliff Zayas RTR Monitor Procedures Performed Left Heart Cath w/or w/o Coronaries [id number] [facility] w/wo Plasty Single RCA PTCA posterior descending branch Indication Non-STEMI Risk Factors Dysplipidemia Obesity, Hypercholesterolemia, Coronary Artery DiseaseHypertension, Diabetes Previous Procedures/Diagnoses Previous PCI, Previous PR Admission/Lab Medications/Medications given during procedure Aspirin, Thrombin Inhibitors Procedure Narrative The patient was brought electively to the Cardiac Catheterization Laboratory and was prepped and draped in a sterile manner. The right femoral was infiltrated with 2% Lidocaine subcutaneous anesthesia. A [place] 6 FR sheath was inserted into the right femoral artery. Coronary angiography was performed using coronary diagnostic catheters. The right coronary system was accessed and visualized with a Diagnostic JR4 catheter. The left coronary system was accessed and visualized with a Diagnostic JL4 catheter. The left ventricle was accessed and visualized with a Pigtail catheter. Left ventricular/Aortic Valve gradient assessed via catheter pullback. Left ventriculogram was performed in PALACIOS projection[place] [address] CARDIAC CATH REPORT Name: KYLE BLAIR MARIEL Room: [address]#: [id number] Admission: 02/28/19 Attend Phys: Michael Burnham MD, Discharge: 03/01/19 Date of : 73 Report #: [id number] femoral angiogram was performed . Closure device was deployed with a 6 Fr Angioseal. The patient tolerated the procedure well and there were no complications associated with the procedure. There was no hematoma. Intraoperative Conscious Sedation Sedation start time: 10:53 Case end Time: 12:36 Fentanyl 50 mcg Versed 2 mg Fluoro Time: 20.6 minutes Dose: DAP 084265 cGycm2 2970 mGy Contrast Type and Amount: Visipaque 330 ml Coronary Angiography The patient's coronary anatomy is right dominant. Diagnostic Cath Left Main 0% narrowing LAD 30% mid LAD narrowing with widely patent mid LAD stent Circumflex 30% mid vessel narrowing Right Coronary Dominant vessel with tandem 90% stenoses beyond the acute margin followed by 80% stenosis of the posterior descending branch and 80% tubular narrowing of the distal portion of the posterolateral branch of the right coronary artery Left Ventriculography The left ventricle is normal in size with normal contractility. The left ventricular ejection fraction is estimated to be 65%. Left ventricular wall motion abnormalities are not present. There is no mitral insufficiency. Hemodynamics The aortic pressure is 88/50 mmHg with a mean of 46 mmHg. The left ventricular pressure is 93/-12 mmHg with a mean of mmHg. The left ventricular end diastolic pressure is 3 mmHg. There was no gradient across the aortic valve upon pullback. PCI Technique Lesion Anticoagulation was achieved with Angiomax. Patient was preloaded with Angiomax IV 15 ml. Percutaneous coronary intervention was performed on the distal right coronary artery. The lesion stenosis prior to intervention was 90% with EDISON 3 flow. A 6FR LAUNCHER AR1 Guide Catheter was used to engage the ostium. A IG: ProwaterFlex 180CM Interventional Guidewire was used [place] [address] CARDIAC CATH REPORT Name: KYLE BLAIR II [address]: [address]#: [id number] Admission: 02/28/19 Attend Phys: Michael Burnham MD, Discharge: 03/01/19 Date of : 73 Report #: [id number] BALLOON DILATION A Balloon catheter Mini Trek RX 2.0 X 12 was inserted and inflated up to 8.00atm for 14seconds. Additional Inflation: 12.00atm for 17seconds. Additional Inflation: 14.00atm for 14seconds. STENT DEPLOYMENT A drug-eluting stent Lead RX Stent 2.0X8mm was inserted and inflated up to 12.00atm for 14seconds. Additional Inflation: 12.00atm for 10seconds. Final angiography reveals 0 % stenosis with EDISON 3 flow. STENT DEPLOYMENT A drug-eluting stent Lead RX Stent 2.95Y84qf was inserted and inflated up to 16.00atm for 15seconds. Additional Inflation: 17.00atm for 12seconds. Final angiography reveals 0 % stenosis with EDISON 3 flow. PCI Technique Lesion 2 Percutaneous Coronary Intervention was performed on the right posterior descending artery. Patient was preloaded with escending branch of the distal right coronary artery. The lesion stenosis prior to intervention was 80% with EDISON flow. A 6FR LAUNCHER AR1 Guide Catheter was used to engage the ostium. A IG: BMW 190cm Interventional Guidewire was used to cross the lesion. Balloon Dilation A Balloon catheter Mini Trek RX 2.0 X 12 was inserted and inflated up to 15atm for 14seconds. Additional Inflation: 15atm for 12seconds. Final angiography reveals 50 % stenosis with EDISON 3 flow. Conclusion #1 significant coronary artery disease characterized by the following: A tandem 90% distal right coronary stenosis with 80% posterior descending branch stenosis and 80% posterolateral branch stenosis B 30% mid LAD narrowing with widely patent mid LAD stent C 30% [place] [address] CARDIAC CATH REPORT Name: KYLE BLAIR MARIEL Room: [address] Peg Ramirez#: [id number] Admission: 02/28/19 Attend Phys: Michael Burnham MD, Discharge: 03/01/19 Date of : 73 Report #: [id number] #2 normal left ventricular systolic function, estimate ejection fraction being 65% #3 low normal systemic systolic pressure #4 successful percutaneous coronary intervention with deployment of sequential drug-eluting stents at the sites of tandem 90% distal right coronary stenosis with 0% residual narrowing at both sites and EDISON-3 flow to the distal vessel #5 percutaneous vessel coronary angioplasty at the site of 80% posterior descending branch narrowing with 50% residual narrowing and EDISON-3 flow to the distal vessel Recommendations Cardiac Risk Reduction Program Aggressive Medical Therapy Medications Administered Aspirin (any) Prasugrel Diagnostic Cath Approved by: Michael Burnham MD Date/Time: 03/01/2019 12:50:21 <ELECTRONICALLY SIGNED> By: Michael Burnham MD, FACC 03/01/19 1252 1252 1252Michael Burnham MD, FACC /INF
--- NOTE | 2019-03-01 13:09 | EKG ---
[place] [address] ELECTROCARDIOGRAM REPORT Name: KYLE BLAIR MIKE FLOYD Room: [address]R.#: [id number] Admission: 02/28/19 Attend Phys: Michael Burnham MD, Discharge: 03/01/19 Date of : 73 Report #: [id number] THIS REPORT FOR: //name// [facility] Test Date: 2019-02-28 Test Time: 10:14:47 Pat Name: KYLE BLAIR Department: Room: [facility] Gender: M Bilingual Medical Assistant: MASON : 1975 Requested By: Michael Burnham Order Number: [id number] Reading MD: Paolo Rowell Measurements Intervals [place] Rate: 92 P: 23 ME: 154 QRS: 46 QRSD: 84 T: 24 QT: 336 QTc: 416 Interpretive Statements Sinus rhythm ST elev, probable normal early repol pattern Compared to ECG 09/26/2017 15:47:42 T-wave abnormality no longer present Electronically Signed On 03-01-2019 13:09:04 BLACKTOP PAVER OPERATOR by Paolo Rowell [email or web address] <ELECTRONICALLY SIGNED> By: Paolo Rowell MD, [facility] 03/01/19 2239 1014 1014 Paolo Rowell MD, [facility] /EPI
--- NOTE | 2019-03-01 14:22 | EKG ---
[place] [address] ELECTROCARDIOGRAM REPORT Name: KYLE BLAIR II Room: [address] M.R.#: [id number] Admission: 02/28/19 Attend Phys: Michael Burnham MD, Discharge: 03/01/19 Date of : 73 Report #: [id number] THIS REPORT FOR: //name// [facility] Test Date: 2019-03-01 Test Time: 05:07:55 Pat Name: KYLE BLAIR Department: Room: [facility] Gender: M Bow Maker Production: KIERRA : 1975 Requested By: Michael Burnham Order Number: [id number] Reading MD: Paolo Rowell Measurements Intervals [place] Rate: 89 P: 66 [place]: 157 QRS: 35 QRSD: 87 T: 52 QT: 355 QTc: 432 Interpretive Statements Sinus rhythm nonspecific t wave changes Electronically Signed On 03-01-2019 14:21:32 PECAN HULLER by Paolo Rowell [email or web address] <ELECTRONICALLY SIGNED> By: Paolo Rowell MD, [facility] 03/01/19 1421 0507 0507 Paolo Rowell MD, FACC /EPI
--- NOTE | 2019-03-02 10:32 | D ---
[address] [address] DISCHARGE SUMMARY Name: KYLE BLAIR MARIEL Room: [address] Peg Ramirez#: [id number] Admission: 02/28/19 Attend Phys: Michael Burnham MD, Discharge: 03/01/19 Date of : 73 Report #: [id number] THIS REPORT FOR: //name// CC: Michael Cuevas DATE OF SERVICE: 03/01/2019 FINAL DISCHARGE DIAGNOSES: 1. Unstable angina. 2. Coronary artery disease. 3. Status post remote percutaneous coronary intervention of the left anterior descending and right coronary artery and more recent percutaneous coronary intervention of the right coronary artery on 02/28/2019. 4. Hypertension. 5. Hyperlipidemia. 6. Diabetes. PROCEDURES: 02/28/2019 -- left heart catheterization, left ventriculography, selective coronary arteriography and percutaneous coronary intervention to the right coronary artery with deployment of two drug-eluting stents and an angioplasty of a distal posterolateral branch. HOSPITAL COURSE: The patient is a very pleasant 44-year-old male with aggressive coronary artery disease and hyperlipidemia. In that context, he has undergone prior stenting of the LAD and right coronary artery. He presented with a clinical syndrome, suggesting unstable angina with burning chest pain and modest exertion with episodes increasing in frequency and severity. In that context, I performed cardiac catheterization on 02/28/2019, which revealed a widely patent LAD stent with a tandem 90% distal right coronary artery stenosis and 80%-90% stenosis in the posterolateral branch of the distal right coronary artery with 80% tubular narrowing in the posterior descending branch. I performed percutaneous coronary intervention, deploying 2 drug-eluting stents in the distal right coronary artery with 0% residual narrowing at both sites. I dilated the posterolateral branch with 50% residual narrowing at that site. The patient did well post-procedurally with troponin less than 0.06. There was good hemostasis at the right femoral site of catheterization. Laboratory revealed a sodium 131, potassium 4.4, BUN 20, creatinine 1.0, glucose 247. Hemoglobin 13.3, white blood cell count 7200 with 241,000 platelets. He ambulated without difficulty and there was good hemostasis at the right femoral site of catheterization. DISCHARGE MEDICATIONS: He was discharged to home on aspirin 81 mg daily, Crestor 40 mg daily, cholecalciferol or vitamin D3 50,000 units daily, [place] [address] DISCHARGE SUMMARY Name: KYLE BLAIR MARIEL Room: [address] Peg Ramirez#: [id number] Admission: 02/28/19 Attend Phys: Michael Burnham MD, Discharge: 03/01/19 Date of : 73 Report #: [id number] 0.1 mg at bedtime, cyclobenzaprine or Flexeril 1 tablet 10 mg at bedtime, fish oil 1000 mg 4 tablets daily, Zetia 10 mg daily, fenofibrate 160 mg daily, furosemide 40 mg daily, gemfibrozil 600 mg b.i.d., Icosapent or Vacepa two capsules b.i.d., Levemir insulin 25 units subcutaneously b.i.d., Humalog insulin 8 units subcutaneously as directed contingent on sugars at home, Imdur 30 mg daily, L-thyroxine 0.05 mg daily, Cqduul-Skztxbme-Ahzzdqz 2 capsules t.i.d., lisinopril 40 mg daily, metformin 1000 mg b.i.d. to be resumed on 03/03/2019, omeprazole 40 mg daily, prasugrel 10 mg daily with a 60 mg genaro-procedural dose, risperidone 4 mg at bedtime, aforementioned rosuvastatin 40 mg daily, testosterone injections every other Thursday 1 mL, acetaminophen 650 mg p.r.n. as needed, hydrocodone 2 tablets every 6 hours as needed for musculoskeletal pain, hydrocodone/acetaminophen 1 tablet every 4 hours as needed for pain, and p.r.n. sublingual nitroglycerin. PLAN: I will plan to see the patient on 03/23/2019 at 10:20 hours at [facility] office. Therefore, the patient is discharged to home in stable condition on the aforementioned medications with followup as iterated above. <ELECTRONICALLY SIGNED> By: Michael Burnham MD, FACC 03/02/19 1032 0915 1050Jopavithra Burnham MD, FACC /nt
== END 2019-03-01 11:26 | disposition home or self-care (01) ==
LOC: M.CL 07:12 → M.TBA-CV 13:10 → M.2W 13:10
PROVIDERS: ADMIT Internal Medicine
DX: I25.110 Atherosclerotic heart disease of native coronary artery with unstable angina pectoris (principal); I10 Essential (primary) hypertension; E78.5 Hyperlipidemia, unspecified; E11.9 Type 2 diabetes mellitus without complications; I25.2 Old myocardial infarction; Z79.4 Long term (current) use of insulin; Z79.899 Other long term (current) drug therapy; Z79.82 Long term (current) use of aspirin

== ENCOUNTER → 2019-05-02 | Outpatient (CLI) | payer OTHER ==
[~2019-05-02] MED LIST changes: +ASA81BEC PO; +ASPIRIN EC325 M1 PO; +CATAPRES0.1 MG PO; +CRESTOR40 MG PO; +FENOFIBRATE160 MG PO; +FLEXERIL PO; +FUROSEMIDE 40 M40 M1 PO; +ISOSORBIDE MONO30 M1 PO; +LEVEMIR100 UNIT/2 SUBQ; +LEVO-T50 MCG PO; +LOPRESSOR50 MG PO; +NORCO 5-325 TA1 EAC2 PO; +ROSUVASTATIN CA40 MG PO; +VASCEPA1 GM PO; +VITAMIN D350000 UNIT PO; +ZENPEP DR 5,001 EAC1 PO; +ZESTRIL20 MG PO; +ZETIA10 MG PO
== END ==
LOC: M.MRI 04-20 13:30
DX: G44.099 Other trigeminal autonomic cephalgias (TAC), not intractable (principal)

== ENCOUNTER 2019-08-10 08:01 | Observation (INO) | payer OTHER ==
[~2019-08-10] VITALS: Ht 180.3 cm; Wt 92.7 kg
[2019-08-10] VITALS (20 sets, daily range): BP systolic 99–122; BP diastolic 59–86
--- NOTE | ~2019-08-10 | H ---
[address] [address] HISTORY AND PHYSICAL Name: KYLE BLAIR II Room: [address] Peg MKayleneRKaylene#: [id number] Admission: 08/10/19 Attend Phys: Michael Burnham MD, Discharge: 08/11/19 Date of : 73 Report #: [id number] THIS REPORT FOR: //name// cc: Brandon Cuevas Karl ~ THIS REPORT FOR: //name// Please refer to the History and Physical performed in the physician's office. By: [facility]3Medical Records Staff JANUSZ /BITA
[~2019-08-10 08:01] MED LIST changes: +EQL FISH OIL 11 EACH PO; +NEURONTIN300 MG PO; +TOPROL XL50 MG PO; +VITAMIN D21250 MC1 PO
[2019-08-10 08:39] LABS: HEMATOCRIT 38.1 % (42.0-52.0); HEMOGLOBIN 13.4 gm/dL (14.0-18.0); MCH 27.7 pg (26.0-34.0); MCHC 35.1 g/dL (28.0-37.0); MCV 78.9 fL (80.0-100.0); MPV 6.6 fl. (7.2-11.1); RBC 4.83 mil/uL (4.50-6.00); RDW-CV 16.4 % (10.5-14.5); WBC 6.9 thou/uL (4.0-11.0)
[2019-08-10 08:45] LABS: ANION GAP 8 mmol/L (7-16); BUN 20 mg/dL (7-18); CALCIUM 7.9 mg/dL (8.5-10.1); CHLORIDE 97 mmol/L (98-107); CO2 25 mmol/L (21-32); CREATININE 1.1 mg/dL (0.6-1.3); GLUCOSE 306 mg/dL (70-99); POTASSIUM 4.4 mmol/L (3.5-5.1); SODIUM 130 mmol/L (136-145)
[2019-08-10 08:51] LABS: APTT 26.6 Seconds (25.0-31.3); PROTIME 10.1 Seconds (9.20-11.50)
[2019-08-10 08:58] LABS: ALBUMIN 3.5 g/dL (3.4-5.0); ALKALINE PHOSPHATASE 42 U/L (46-116); CHOLESTEROL 261 mg/dL (<200); HDL CHOLESTEROL 20 mg/dL (>40); TC:HDL 13.1 Ratio (Not establshd); TOTAL BILIRUBIN 0.5 mg/dL (<0.1-1.0); TOTAL PROTEIN 7.2 g/dL (6.4-8.2)
[2019-08-10 09:18] LABS: TRIGLYCERIDE 3143 mg/dL (<150); VLDL 629 mg/dL (<40)
[2019-08-10 09:37] LABS: SGPT 50 U/L (30-65)
[2019-08-10 09:47] LABS: LDL CHOLESTEROL ND mg/dL (<100); SERUM ASSESSMENT Slight Lipemia; SGOT 33 U/L (15-37)
--- NOTE | 2019-08-10 14:13 | NUR ---
PT ARRIVED ON TELE FOLLR AT 1245 ACCOMPANIED BY IR NURSE. PT IS AOX4. ON RA. VSS. RIGHT GROIN SITE IN INTACT. DENIES PAIN. IV FLUID INFUSING AT 125 CC PER HOUR ORDERED. PT ON BEDREST UNTILL 1745. PT ATE LUNCH. GOOD APPETITE. HOME MEDICATION GIVEN. SOME OF THE HOME MEDS HAVE BEEN TAKEN PRIOR TO HOSPITALIZATION. ACCUCHECK AC/HS. CAR CONTROL DIET. NARAYAN CATHETER IN PLACE. CALL LIGHT WITHIN REACH. WILL CONTINUE TO MONITOR. TRACING SR ON SPOOLING MACHINE OPERATOR
--- NOTE | 2019-08-10 17:09 | EKG ---
[place] [address] ELECTROCARDIOGRAM REPORT Name: KYLE BLAIR II Room: [address] M.R.#: [id number] Admission: 08/10/19 Attend Phys: Chen Simon Discharge: Date of : 73 Date of Service: 08/10/19 0842 Report #: [id number] THIS REPORT FOR: //name// [facility] Test Date: 2019-08-10 Test Time: 08:42:47 Pat Name: KYLE BLAIR Department: Room: [facility] Gender: M Licensed Optician: AMELIA : 1975 Requested By: Michael Burnham Order Number: [id number] Reading MD: Michael Burnham Measurements Intervals [place] Rate: 84 P: 14 UT: 148 QRS: 52 QRSD: 87 T: 19 QT: 354 QTc: 419 Interpretive Statements Sinus rhythm ST elev, probable normal early repol pattern Compared to ECG 03/01/2019 05:07:55 ST (T wave) deviation now present T-wave abnormality no longer present Electronically Signed On 08-10-2019 17:08:03 CDT by Michael Burnham [email or web address] <ELECTRONICALLY SIGNED> By: Michael Burnham MD, [facility] 08/10/19 1708 0842 0842 Michael Burnham MD, [facility] /EPI
--- NOTE | 2019-08-10 17:11 | EKG ---
[place] [address] ELECTROCARDIOGRAM REPORT Name: KYLE BLAIR II Room: [address] M.R.#: [id number] Admission: 08/10/19 Attend Phys: Chen Simon Discharge: Date of : 73 Date of Service: 08/10/19 1146 Report #: [id number] THIS REPORT FOR: //name// [facility] Test Date: 2019-08-10 Test Time: 11:46:22 Pat Name: KYLE BLAIR Department: Room: [facility] Gender: M Bacteriology Technician: AMELIA : 1975 Requested By: Michael Burnham Order Number: [id number] Reading MD: Michael Burnham Measurements Intervals [place] Rate: 85 P: 44 CA: 160 QRS: 48 QRSD: 87 T: 31 QT: 353 QTc: 420 Interpretive Statements Sinus rhythm ST elev, probable normal early repol pattern Compared to ECG 03/01/2019 05:07:55 ST (T wave) deviation now present T-wave abnormality no longer present Electronically Signed On 08-10-2019 17:10:28 CDT by Michael Burnham [email or web address] <ELECTRONICALLY SIGNED> By: Michael Burnham MD, [facility] 08/10/19 1710 1146 1146 Michael Burnham MD, [facility] /EPI
--- NOTE | 2019-08-10 18:56 | NUR ---
PT OFF BEDREST. INSULIN GIVEN. IV FLUID CONTINUE TO BE INFUSED AT 125 CC PER HOUR. R FOREARM IV IS PATENT. PT IS NOW UP AD BERTRAM. RIGHT GROIN SITE IS INTACT.
[2019-08-11 04:45] VITALS: BP 118/71
[2019-08-11 05:06] LABS: HEMOGLOBIN 12.9 gm/dL (14.0-18.0); MCH 27.3 pg (26.0-34.0); MCV 80.3 fL (80.0-100.0); MPV 7.1 fl. (7.2-11.1); RBC 4.73 mil/uL (4.50-6.00); RDW-CV 16.7 % (10.5-14.5)
[2019-08-11 05:34] LABS: ALBUMIN 3.3 g/dL (3.4-5.0); CALCIUM 7.8 mg/dL (8.5-10.1); CREATININE 1.1 mg/dL (0.6-1.3); POTASSIUM 4.2 mmol/L (3.5-5.1); TOTAL BILIRUBIN 0.4 mg/dL (<0.1-1.0); TOTAL PROTEIN 6.6 g/dL (6.4-8.2); TROPONIN-I LEVEL 0.35 ng/mL (<0.06)
--- NOTE | 2019-08-11 06:15 | NUR ---
ASSUMED CARE OF PT AFTER REPORT AT 1930. PT A&OX4. VSS. PHYSICAL ASSESSMENT COMPLETED AND CHARTED. PT ON RA/CPAP AT S. PT TRACING SR ON TELE. PT UPADLIB TO RESTROOM. PT DENIES ANY PAIN OR DISCOMFORT. PT WITH NARAYAN TO DEPENDENT DRAIN. POST CATH SITE TO RIGHT GROIN CLEAN, DR & INTACT. NO BLEEDING, HEMATOMA OR TENDERNESS NOTED. PT ABLE TO SLEEP WELL ON BED. CALL LIGHT WITHIN REACH.
[2019-08-11 08:00] VITALS: BP 114/78
[2019-08-11 09:05] VITALS: BP 114/78
--- NOTE | 2019-08-11 11:05 | NUR ---
ASSUMED PT CARE AT 0730, PT RESTING IN BED, SATTING 97% ON RA, TRACING SR ON THE CUSTOMER CARE VOICE CONSULTANT AND HAS NO C/O PAIN OR SHORTNESS OF BREATH. RT GROIN CATH SITE C/D/I W/ NO HEMATOMA AND A BANDAID IN PLACE. PT NARAYAN DC'D SO PT CAN WORK ON DC TO HOME TODAY. PT HAS NS RUNNING AT 50 ML/HR. PT IS UP AD BERTRAM AND GOAL IS TO INCREASE ACTIVITY AND REMAIN FREE FROM HEMATOMA ON CATH SITE. AM ASSESSMENT CHARTED, MEDS PER MAR, HOURLY ROUNDING OBSERVED, WILL CONTINUE POC.
[2019-08-11] MEDS ORDERED: NORVASC 2.5 MG2.5 M1 PO (11:25)
[2019-08-11] MEDS ORDERED: LIPITOR10 MG PO (11:27)
[2019-08-11] MEDS ORDERED: DULCOLAX STOOL100 M1 PO (11:29)
[2019-08-11] MEDS ORDERED: PROSCAR 5MG TABL5 M1 PO (11:31)
[2019-08-11] MEDS ORDERED: VITAMIN D210 MCG PO (11:40)
--- NOTE | 2019-08-11 11:42 | CARD ---
[address] [address] CARDIAC CATH REPORT Name: KYLE BLAIR MARIEL Room: [address] Peg M.RKaylene#: [id number] Admission: 08/10/19 Attend Phys: Michael Burnham MD, Discharge: Date of : 73 Report #: [id number] THIS REPORT FOR: //name// cc: Brandon Cuevas Karl ~ APPROVED REPORT Study performed: 08/10/2019 08:25:18 Patient Details Patient Status: Out-Patient Room #: Event Personnel Michael Burnham Bridge Rigger, Perla Aly RN Waiter/Waitress Head, Darian Arambula Lawhorn, Becki RTR monitor Procedures Performed Rt femoral artery access, Left Heart Cath with Coronaries, DEONTE Place with Plasty Single RCA, Hemostasis with Angioseal Indication Unstable angina , Positive stress test Risk Factors Family History, Hypercholesterolemia, Hypertension Previous Procedures/Diagnoses Previous PCI Admission/Lab Medications/Medications given during procedure Angiomax 15 ml IV bolus, Angiomax drip 38.8 ml/hr, Effient PO 30 mg, Aspirin PO 162 mg Procedure Narrative The patient was brought electively to the Cardiac Catheterization Laboratory and was prepped and draped in a sterile manner. The right femoral was infiltrated with 2% Lidocaine subcutaneous anesthesia. A 6F [place] sheath was inserted into the right femoral artery. Coronary angiography was performed using coronary diagnostic catheters. The right coronary system was accessed and visualized with a 6F JR4 catheter. The left coronary system was accessed and visualized with a 6F JL4 catheter. The left ventricle was accessed and visualized with a 6F Pigtail catheter. Left ventricular/Aortic [address] [address] CARDIAC CATH REPORT Name: KYLE BLAIR II Room: [address]#: [id number] Admission: 08/10/19 Attend Phys: Michael Burnham MD, Discharge: Date of : 73 Report #: [id number] Valve gradient assessed via catheter pullback. Left ventriculogram was performed in PALACIOS projection. Pre-demployment femoral angiogram was performed . Closure device was deployed with a 6 Fr Angioseal STS. The patient tolerated the procedure well and there were no complications associated with the procedure. There was no hematoma. Intraoperative Conscious Sedation Sedation start time: 09:51 Case end Time: 10:44 Fentanyl 25.0 mcg Versed 2.0 mg Fluoro Time: 11.8 minutes Dose: DAP 857318 cGycm2 3417 mGy Contrast Type and Amount: Visipaque 280 Coronary Angiography The patient's coronary anatomy is right dominant. Diagnostic Cath Left Main 0% narrowing LAD 40% mid vessel narrowing Circumflex 0% narrowing Right Coronary 30% proximal narrowing with 40% tubular mid vessel narrowing and 95% distal stenosis at the bifurcation into the posterolateral and posterior descending branches with 80% tubular posterior descending branch narrowing; there were collaterals from the LAD to a posterolateral branch of the distal right coronary artery Left Ventriculography The left ventricle is normal in size with normal contractility. The left ventricular ejection fraction is estimated to be 60%. Left ventricular wall motion abnormalities are not present. There is no mitral insufficiency. Hemodynamics The aortic pressure is 95/56 mmHg with a mean of 74 mmHg. The left ventricular pressure is 108/-4 mmHg with a mean of 3 mmHg. The left ventricular end diastolic pressure is 5 mmHg. There was no gradient across the aortic valve upon pullback. PCI Technique Lesion Anticoagulation was achieved with Angiomax. Patient was preloaded with Angiomax 15 ml IV bolus. Percutaneous coronary intervention was performed on the right posterior [place] [address] CARDIAC CATH REPORT Name: KYLE BLAIR Room: [address]#: [id number] Admission: 08/10/19 Attend Phys: Michael Burnham MD, Discharge: Date of : 73 Report #: [id number] stenosis prior to intervention was 80% with EDISON 3 flow. A 6F JR4 Guide Catheter was used to engage the right ostium. A ProwaterFlex 180cm Interventional Guidewire was used to cross the lesion. BALLOON DILATION A Balloon catheter [place] SC 2.0 x 12mm was inserted and inflated up to 12atm for 11seconds. Additional Inflation: 14atm for 13seconds. Additional Inflation: 14atm for 6seconds. STENT DEPLOYMENT A drug-eluting stent [place] RX Stent 2.0 x 12mm was inserted and inflated up to 12atm for 8seconds. Additional Inflation: 12atm for 8seconds. Final angiography reveals 0 % stenosis with EDISON 3 flow. PCI Technique Lesion 2 Patient was preloaded with Angiomax 15 ml IV bolus. Percutaneous coronary intervention was performed on the distal right coronary artery. The lesion stenosis prior to intervention was 95% with EDISON 3 flow. A 6F JR4 Guide Catheter was used to engage the right ostium. A ProwaterFlex 180cm Interventional Guidewire was used to cross the lesion. Balloon Dilation A Balloon catheter 2.0x12 Euphora was inserted and inflated up to ravi for seconds. Stent Deployment A drug-eluting stent [place] RX Stent 2.0 x 26mm was inserted and inflated up to 14atm for 9seconds. Additional Inflation: 18atm for 11seconds. Post Stent Deployment Balloon Dilation A Balloon catheter NC Trek RX 2.25 x 8mm was inserted and inflated up to 14atm for 7seconds. Additional Inflation: 16atm for 7seconds. Additional Inflation: 18atm for 9seconds. Final angiography reveals 0 % stenosis with EDISON 3 flow. Conclusion 1. Significant coronary artery disease characterized by the following: A 40% [place] [address] CARDIAC CATH REPORT Name: KYLE BLAIR II Room: [address] Peg Ramirez#: [id number] Admission: 08/10/19 Attend Phys: Michael Burnham MD, Discharge: Date of : 73 Report #: [id number] B 30% proximal 40% tubular mid right coronary narrowing with 95% distal stenosis and 80% posterior descending branch stenosis; there were collaterals from the left system to a postero lateral branch of the distal right coronary artery 2. Normal left ventricular systolic function, estimated ejection fraction being 60% 3. Normal left-sided hemodynamic study 4. Successful PCI with deployment of drug-eluting stents at the sites of 95% distal right coronary stenosis and 80% posterior descending branch stenosis with 0% residual narrowings at both sites and EDISON-3 flow to the distal vessel Recommendations Cardiac Risk Reduction Program Aggressive Medical Therapy Medications Administered Aspirin (any) Prasugrel Diagnostic Cath Approved by: Michael Burnham MD Date/Time: 08/11/2019 11:38:46 <ELECTRONICALLY SIGNED> By: Michael Burnham MD, [facility] 08/11/19 1141 1141 1141Michael Burnham MD, FAC /INF
--- NOTE | 2019-08-11 12:58 | NUR ---
DC ORDERS RECEIVED. DC INSTRUCTIONS AND F/U APPTS. GIVEN TO PT, PT COMMUNICATES UNDERSTANDING OF DC TEACHING. SPORTS MEDICINE TRAINER, NARAYAN AND IV REMOVED. PT DC'D BY WC W/ NURSING STAFF TO DAUGHTER'S PERSONAL VEHICLE.
--- NOTE | 2019-08-11 15:53 | D ---
[address] [address] DISCHARGE SUMMARY Name: KYLE BLAIR II Room: [address] Peg MLuz#: [id number] Admission: 08/10/19 Attend Phys: Michael Burnham MD, Discharge: 08/11/19 Date of : 73 Report #: [id number] THIS REPORT FOR: //name// cc: Brandon Cuevas Karl ~ THIS REPORT FOR: //name// CC: Michael Cuevas DATE OF SERVICE: 08/11/2019 FINAL DISCHARGE DIAGNOSES: 1. Abnormal nuclear stress test. 2. Unstable angina. 3. Coronary artery disease. 4. Status post percutaneous coronary intervention to the right coronary artery. 5. Type 2 diabetes. 6. Hyperlipidemia. 7. Hypertension. PROCEDURES: On 08/10/2019 - left heart catheterization, selective coronary arteriography and percutaneous coronary intervention to the right coronary artery with deployment of 2 drug-eluting stents. The patient is a very pleasant 44-year-old male with aggressive coronary artery disease with underlying diabetes and hyperlipidemia. Recently, he has noted an increase in episodes of chest discomfort compatible with angina. He is several months status post prior intervention to the right coronary artery. Nuclear stress test revealed inducible inferior ischemia. In that context, he underwent cardiac catheterization on 08/10/2019, which revealed 95% distal right coronary stenosis at the bifurcation of the posterolateral and posterior descending branch with 80% tubular narrowing in the posterior descending branch. I deployed 2 drug-eluting stents, one in the distal right coronary artery and one in the posterolateral branch with 0% residual narrowing and EDISON 3 flow of the distal vessel. There were collaterals from the left filling the posterolateral branch and left coronary injections. There were no significant left coronary stenoses. The patient did well post-procedurally. There was good hemostasis at the right femoral site of catheterization. LABORATORY DATA: On 08/10 revealed sodium 132, potassium 4.2, BUN 15, creatinine 1.1, glucose 246. Hemoglobin 12.9, white blood cell count 6000 with 209,000 [place] [address] DISCHARGE SUMMARY Name: KYLE BLAIR MIKE FLOYD [address]: [address]#: [id number] Admission: 08/10/19 Attend Phys: Michael Burnham MD, Discharge: 08/11/19 Date of : 73 Report #: [id number] The patient ambulated in the hallways without difficulty. The troponin was 0.35, inconsequential elevation. DISCHARGE MEDICATIONS: He was discharged to home on the following medications: Amlodipine 2.5 mg daily, aspirin 81 mg daily, atorvastatin 20 mg daily, docusate 100 mg daily, finasteride 5 mg daily, Imdur 30 mg daily, clonidine 0.1 mg b.i.d., vitamin D2 1.25 mg daily, Zetia 10 mg daily, fenofibrate 160 mg daily, furosemide 20 mg daily, gabapentin 300 mg t.i.d., Vascepa 2 capsules b.i.d., Levemir insulin 25 units b.i.d., Humalog insulin 8 units subcutaneously sliding scale before meals, L-thyroxine 50 mcg daily, ktorqu-nnhcobbf-pkpfddx 2 capsules t.i.d., lisinopril 40 mg daily, metformin 1000 mg b.i.d. to be resumed on 08/12/2019, metoprolol tartrate 50 mg b.i.d., omega-3 fatty acids 2000 mg daily, omeprazole 40 mg daily, prasugrel 10 mg daily, Risperdal 4 mg at bedtime, rosuvastatin 40 mg daily, Depo-testosterone 1 mg intramuscularly, acetaminophen 650 mg p.r.n. discomfort and p.r.n. sublingual nitroglycerin. The patient is scheduled to see my nurse practitioner in followup on 09/01/2019 with MEGAN Delgado, and I will plan to see him in 4-6 weeks in clinical followup. Therefore, the patient is discharged home in stable condition on the aforementioned medications with followup as described above. <ELECTRONICALLY SIGNED> By: Michael Burnham MD, [facility] 08/11/19 1553 0907 0923Michael Burnham MD, [facility] /nt
--- NOTE | 2019-08-11 16:01 | EKG ---
[place] [address] ELECTROCARDIOGRAM REPORT Name: KYLE BLAIR II Room: [address] M.R.#: [id number] Admission: 08/10/19 Attend Phys: Chen Simon Discharge: 08/11/19 Date of : 73 Date of Service: 08/11/19 0423 Report #: [id number] THIS REPORT FOR: //name// [facility] Test Date: 2019-08-11 Test Time: 04:23:17 Pat Name: KYLE BLAIR Department: Room: [facility] Gender: M Clinical Rn Manager: SHARRI : 1975 Requested By: Michael Burnham Order Number: [id number] Reading MD: Michael Bunrham Measurements Intervals [place] Rate: 80 P: 22 NE: 139 QRS: 59 QRSD: 87 T: 23 QT: 355 QTc: 410 Interpretive Statements Sinus rhythm Abnormal R-wave progression, early transition Borderline ST elevation, anterolateral leads Baseline wander in lead(s) V4 Compared to ECG 08/10/2019 11:46:22 No significant changes Electronically Signed On 08-11-2019 16:00:25 CDT by Michael Burnham [email or web address] <ELECTRONICALLY SIGNED> By: Michael Burnham MD, FACC 08/11/19 1600 0423 0423 Michael Burnham MD, FAC /EPI
== END 2019-08-11 12:50 | disposition home or self-care (01) ==
LOC: M.CL 08:01 → M.TBA-CV 10:24 → M.2W 10:24
PROVIDERS: ADMIT Internal Medicine; ATTEND Internal Medicine
DX: I25.110 Atherosclerotic heart disease of native coronary artery with unstable angina pectoris (principal); I10 Essential (primary) hypertension; E78.5 Hyperlipidemia, unspecified; E11.9 Type 2 diabetes mellitus without complications

== ENCOUNTER 2020-03-14 07:48 | Observation (INO) | payer OTHER ==
[~2020-03-14] VITALS: Ht 180.3 cm; Wt 112.0 kg
--- NOTE | ~2020-03-14 | H ---
[address] [address] HISTORY AND PHYSICAL Name: KYLE BLAIR II Room: [address] Peg Ramirez#: [id number] Admission: 03/14/20 Attend Phys: Michael Burnham MD, Discharge: 03/15/20 Date of : 73 Report #: [id number] THIS REPORT FOR: cc: Sisi Beth Mischelle RNP ~ [facility],Medical Records Staff Please refer to the History and Physical performed in the physician's office. By: [id number] Records Staff [facility] /BITA
--- NOTE | ~2020-03-14 | PROC ---
[address] [address] PROCEDURE REPORT Name: KYLE BLAIR II Room: [address] Peg Ramirez#: [id number] Admission: 03/14/20 Attend Phys: Michael Burnham MD, Discharge: 03/15/20 Date of : 73 Report #: [id number] THIS REPORT FOR: cc: Sisi Beth Mischelle RNP ~ [facility],Medical Records Staff For Operative report, please see the Cath report in PCI. By: [id number] Records Staff [facility] /BITA
[~2020-03-14 07:48] MED LIST changes: -ASA81BEC PO; +DULCOLAX STOOL100 M1 PO; +LASIX 40 MG TAB40 M2 PO; +LIPITOR10 MG PO; +NORVASC 2.5 MG2.5 M1 PO; +PROSCAR 5MG TABL5 M1 PO; +VITAMIN D210 MCG PO
[2020-03-14 08:34] LABS: HEMATOCRIT 40.9 % (42.0-52.0); HEMOGLOBIN 14.4 gm/dL (14.0-18.0); MCH 24.8 pg (26.0-34.0); MCHC 35.1 g/dL (28.0-37.0); MCV 70.7 fL (80.0-100.0); MPV 7.1 fl. (7.2-11.1); RBC 5.79 mil/uL (4.50-6.00); RDW-CV 16.5 % (10.5-14.5); WBC 6.4 thou/uL (4.0-11.0)
[2020-03-14 08:39] VITALS: BP 103/62
[2020-03-14 08:59] LABS: ANION GAP 11 mmol/L (7-16); BUN 19 mg/dL (7-18); CHLORIDE 91 mmol/L (98-107); CO2 22 mmol/L (21-32); GLUCOSE 342 mg/dL (70-99); SODIUM 124 mmol/L (136-145)
[2020-03-14 09:12] LABS: ALBUMIN 3.6 g/dL (3.4-5.0); CHOLESTEROL 286 mg/dL (<200); HDL CHOLESTEROL 21 mg/dL (>40); TC:HDL 13.6 Ratio (Not establshd); TOTAL BILIRUBIN 1.2 mg/dL (<0.1-1.0); TRIGLYCERIDE 4217 mg/dL (<150); VLDL 843 mg/dL (<40)
[2020-03-14] MEDS ORDERED: FOLIXAPURE5000 UNIT PO (09:22)
[2020-03-14] MEDS ORDERED: ADIPEX-P37.5 MG PO (09:25)
[2020-03-14] MEDS ORDERED: IMDUR 30 MG TAB30 M1 PO (09:25)
[2020-03-14] MEDS ORDERED: ROPINIROLE HCL2 MG PO (09:26)
[2020-03-14] MEDS ORDERED: CYCLOBENZAPRINE10 MG PO (09:26)
[2020-03-14 09:27] LABS: LDL CHOLESTEROL ND mg/dL (<100)
[2020-03-14 09:28] LABS: ALKALINE PHOSPHATASE 34.8 U/L (46-116); SGOT 65 U/L (15-37); SGPT 34.8 U/L (30-65); TOTAL PROTEIN 6.6 g/dL (6.4-8.2)
[2020-03-14 09:29] LABS: SERUM ASSESSMENT Gross Lipemia
--- NOTE | 2020-03-14 14:32 | EKG ---
[place] [address] ELECTROCARDIOGRAM REPORT Name: KYLE BLAIR II Room: [address] M.R.#: [id number] Admission: 03/14/20 Attend Phys: Chen Simon Discharge: Date of : 73 Date of Service: 03/14/2005 Report #: [id number] THIS REPORT FOR: //name// [facility] Test Date: 2020-03-14 Test Time: 09:05:45 Pat Name: KYLE BLAIR Department: Room: [facility] Gender: M Risk Control Specialist: AMELIA : 1975 Requested By: Michael Burnham Order Number: [id number] Reading MD: Michael Burnham Measurements Intervals [place] Rate: 83 P: -9 [place]: 147 QRS: 54 QRSD: 87 T: -20 QT: 344 QTc: 405 Interpretive Statements Sinus rhythm Borderline T abnormalities, inferior leads ST elev, probable normal early repol pattern Compared to ECG 08/11/2019 04:23:17 T-wave abnormality now present ST (T wave) deviation still present Electronically Signed On 03-14-2020 14:32:04 VALUATION CONSULTANT by Michael Burnham [email or web address] <ELECTRONICALLY SIGNED> By: Michael Burnham MD, FACC 03/14/20 1432 0905 0905 Michael Burnham MD, FACC /EPI
--- NOTE | 2020-03-14 14:34 | EKG ---
[place] [address] ELECTROCARDIOGRAM REPORT Name: KYLE BLAIR II Room: [address] M.R.#: [id number] Admission: 03/14/20 Attend Phys: Chen Simon Discharge: Date of : 73 Date of Service: 03/14/20 1153 Report #: [id number] THIS REPORT FOR: //name// [facility] Test Date: 2020-03-14 Test Time: 11:53:22 Pat Name: KYLE BLAIR Department: Room: [facility] Gender: M Side Seam Tender: AMELIA : 1975 Requested By: Michael Burnham Order Number: [id number] Reading MD: Michael Burnham Measurements Intervals [place] Rate: 85 P: 59 [place]: 160 QRS: 56 QRSD: 90 T: 3 QT: 356 QTc: 424 Interpretive Statements Sinus rhythm Consider left atrial enlargement Nonspecific T abnormalities, lateral leads Borderline ST elevation, anterior leads Compared to ECG 03/14/2020 09:05:45 No significant changes Electronically Signed On 03-14-2020 14:33:51 SECONDARY SCHOOL TEACHER by Michael Burnham [email or web address] <ELECTRONICALLY SIGNED> By: Michael Burnham MD, [facility] 03/14/20 1433 1153 1153 Michael Burnham MD, [facility] /EPI
[2020-03-14 15:45] VITALS: BP 114/73
[2020-03-14 20:14] VITALS: BP 119/77
[2020-03-15] VITALS (7 sets, daily range): BP systolic 136–138; BP diastolic 70–92
[2020-03-15 04:15] LABS: HEMATOCRIT 38.9 % (42.0-52.0); HEMOGLOBIN 12.9 gm/dL (14.0-18.0); MCHC 33.3 g/dL (28.0-37.0); MCV 72.2 fL (80.0-100.0); MPV 7.2 fl. (7.2-11.1); RBC 5.39 mil/uL (4.50-6.00); RDW-CV 16.8 % (10.5-14.5); WBC 6.3 thou/uL (4.0-11.0)
[2020-03-15 04:38] LABS: CHLORIDE 101 mmol/L (98-107); POTASSIUM 5.2 mmol/L (3.5-5.1)
[2020-03-15 04:53] LABS: SODIUM 132 mmol/L (136-145)
[2020-03-15 05:53] LABS: ANION GAP 7 mmol/L (7-16); BUN 13 mg/dL (7-18); CO2 24 mmol/L (21-32); CREATININE 1.2 mg/dL (0.6-1.3); GLUCOSE 275 mg/dL (70-99); SGOT 31 U/L (15-37)
[2020-03-15 05:54] LABS: ALBUMIN 3.8 g/dL (3.4-5.0); ALKALINE PHOSPHATASE 36 U/L (46-116); SGPT 29 U/L (30-65); TOTAL BILIRUBIN 0.2 mg/dL (<0.1-1.0); TOTAL PROTEIN 6.1 g/dL (6.4-8.2)
--- NOTE | 2020-03-15 10:54 | CARD ---
[address] [address] CARDIAC CATH REPORT Name: ROSSYKYLE MCKEON II Room: [address] Peg M.RKaylene#: [id number] Admission: 03/14/20 Attend Phys: Michael Burnham MD, Discharge: Date of : 73 Report #: [id number] THIS REPORT FOR: cc: Sisi Beth Mischelle RNP ~ Michael Burnham MD [facility] APPROVED REPORT Study performed: 03/14/2020 08:48:54 Patient Details Patient Status: Out-Patient Room #: The patient is a 45 year-old male Event Personnel Michael Burnhma Education And Development Manager, Darian Arambula MEDICAL EDUCATION COORDINATOR Scrub, Edgardo Chirinos MEDICAL EDUCATION COORDINATOR Monitor, Perla Aly RN Locker Room Manager Procedures Performed Art Access - R femoral artery* Left Heart Cath w/or w/o Coronaries; DEONTE Place w/wo Plasty Single LAD; DEONTE FARM MACHINERY SET UP MECHANIC Distal RCA; DEONTE Placement Mid to Distal RCA ; Hemostasis w/ Angioseal Indication Unstable angina , Chest pain Risk Factors Dysplipidemia , Hypercholesterolemia, Coronary Artery DiseaseHypertension, Diabetes Previous Procedures/Diagnoses Previous PCI Procedure Narrative The patient was brought electively to the Cardiac Catheterization Laboratory and was prepped and draped in a sterile manner. The right femoral was infiltrated with 2% Lidocaine subcutaneous anesthesia. A [place] 6 FR sheath was inserted into the right femoral artery. Coronary angiography was performed using coronary diagnostic catheters. The right coronary system was accessed and visualized with a JR4 catheter. The left coronary system was accessed and visualized with a JL4 catheter. The left ventricle was accessed and visualized with a Diagnostic Pigtail catheter. Left ventricular/[place] [address] CARDIAC CATH REPORT Name: KYLE BLAIR MARIEL Room: [address] Nessa.#: [id number] Admission: 03/14/20 Attend Phys: Michael Burnham MD, Discharge: Date of : 73 Report #: [id number] gradient assessed via catheter pullback. Closure device was deployed with a 6 Fr Angioseal. The patient tolerated the procedure well and there were no complications associated with the procedure. There was no hematoma. Intraoperative Conscious Sedation Sedation start time: 953 Case end Time: 1119 Fentanyl 25 mcg Versed 2 mg Fluoro Time: 25.4 minutes Dose: DAP 498382 cGycm2 4631 mGy Contrast Type and Amount: Visipaque 390 ml Diagnostic Cath Left Main 0% narrowing LAD 80% tubular mid LAD stenosis Circumflex 40% mid circumflex narrowing Right Coronary Dominant vessel with 30% proximal narrowing, 80% tubular narrowing surrounding the acute margin 100% chronic total occlusion of the distal right coronary artery with recanalization to fill the distal right coronary artery in delayed fashion with EDISON I flow;; there were walk-oz-fqshx collaterals filling the distal right coronary artery in retrograde fashion Left Ventriculography The left ventricle is normal in size with normal contractility. The left ventricular ejection fraction is estimated to be 60-65%. Left ventricular wall motion abnormalities are not present. There is no mitral insufficiency. Hemodynamics The aortic pressure is 106/61 mmHg with a mean of 66 mmHg. The left ventricular pressure is 97/3 mmHg with a mean of mmHg. The left ventricular end diastolic pressure is 14 mmHg. There was no gradient across the aortic valve upon pullback. PCI Technique Lesion Anticoagulation was achieved with Angiomax. Patient was preloaded with Angiomax IV 16 ml. Percutaneous coronary intervention was performed on the distal right coronary artery. The lesion stenosis prior to intervention was 100% with EDISON 1 flow. A 6Fr AR 1 Guide Catheter was used to engage the Right ostium. A Mobile System 7: VidaPaker XT 300cm Interventional Guidewire was [place] [address] CARDIAC CATH REPORT Name: KYLE BLAIR II Room: [address] M.R.#: [id number] Admission: 03/14/20 Attend Phys: Michael Burnham MD, Discharge: Date of : 73 Report #: [id number] BALLOON DILATION A Balloon catheter Mini Trek RX 2.0 X 12 was inserted and inflated up to 14.00atm for 8seconds. Additional Inflation: 16.00atm for 7seconds. STENT DEPLOYMENT A drug-eluting stent [place] RX Stent 2.0X30mm was inserted and inflated up to 12.00atm for 17seconds. Additional Inflation: 14.00atm for 7seconds. POST STENT DEPLOYMENT BALLOON DILATION A Balloon catheter NC Trek RX 2.0 X 12 was inserted and inflated up to 14.00atm for 6seconds. Additional Inflation: 18.00atm for 6seconds. Final angiography reveals 10 % stenosis with EDISON 3 flow. COMMENTS The 100% chronic total occlusion the distal right coronary artery was traversed with a Fielder XT catheter utilizing fine cross microcatheter as support. I then placed the fine cross in the distal right coronary artery and replaced the Fielder XT with a long soft-tipped [place] flex wire. I then exchanged over a long wire for a 2.0 x 12 m balloon and subsequently sequential drug-eluting stents were deployed in the distal right coronary artery. STENT DEPLOYMENT A drug-eluting stent Matthew RX Stent 2.0X8mm was inserted and inflated up to 14.00atm for 7seconds. Additional Inflation: 16.00atm for 6seconds. PCI Technique Lesion 2 Percutaneous Coronary Intervention was performed on the Mid Right Coronary Artery. Patient was preloaded with Angiomax IV 16 ml. The lesion stenosis prior to intervention was 80% with EDISON 3 flow. Balloon Dilation A Balloon catheter Mini Trek RX 2.0 X 12 was inserted and inflated up to 18atm for 15seconds. Stent Deployment A drug-eluting stent Matthew RX Stent 2.5X26mm was inserted and inflated up to 15.00atm for 15seconds. Additional Inflation: 16.00atm [place] [address] CARDIAC CATH REPORT Name: KYLE BLAIR II Room: [address] Peg SaavedraRKaylene#: [id number] Admission: 03/14/20 Attend Phys: Michael Burnham MD, Discharge: Date of : 73 Report #: [id number] for 12seconds. Post Stent Deployment Balloon Dilation A Balloon catheter NC Trek RX 3.0 X 12 was inserted and inflated up to 16atm for 10seconds. Final angiography reveals 10 % stenosis with EDISON 3 flow. PCI Technique Lesion 3 Percutaneous Coronary Intervention was performed on the mid left anterior descending artery segment. The lesion stenosis prior to intervention was 80% with EDISON 3 flow. A 6F XB LAD 3.5 Guide Catheter was used to engage the left ostium. A Mobile System 7: Infinity Augmented Reality 180cm Interventional Guidewire was used to cross the lesion. Balloon Dilation A Balloon catheter Trek RX 2.75 X 12 was inserted and inflated up to 16.00atm for 11seconds. Additional Inflation: 17.00atm for 9seconds. Stent Deployment A drug-eluting stent [place] RX Stent 3.0X30mm was inserted and inflated up to 15.00atm for 9seconds. Additional Inflation: 15.00atm for 6seconds. Post Stent Deployment Balloon Dilation A Balloon catheter NC Trek RX 3.0 X 12 was inserted and inflated up to 14.00atm for 8seconds. Additional Inflation: 16.00atm for 11seconds. Additional Inflation: 17.00atm for 9seconds. Final angiography reveals 0 % stenosis with EDISON 3 flow. Conclusion 1. Significant multivessel coronary artery disease characterized by the following: A 80% tubular mid LAD stenosis B 40% narrowing in the midportion of the nondominant circumflex C dominant right coronary artery with 30% proximal narrowing, 80% tubular narrowing surrounding the acute margin, and 100% chronic total occlusion of the distal right coronary artery with recanalization and EDISON I flow to the distal vessel with [address] [address] CARDIAC CATH REPORT Name: KYLE BLAIR II Room: [address] M.R.#: [id number] Admission: 03/14/20 Attend Phys: Michael Burnham MD, Discharge: Date of : 73 Report #: [id number] collaterals also filling the distal right coronary artery 2. Normal left ventricular systolic function, estimated ejection fraction being 60 -65% 3. Normal left-sided hemodynamic study 4. Successful recanalization of the chronic total occlusion of the distal right coronary artery with deployment of sequential drug-eluting stents at that site with 10% residual narrowing following stent deployment 5. Successful PCI with deployment of drug-eluting stent at the site of 80% tubular stenosis of the mid right coronary artery surrounding the acute margin with 10% residual narrowing and EDISON-3 flow to the distal vessel. 6 successful PCI with deployment of a drug-eluting stent at the site of 80% tubular mid LAD stenosis with 0% residual narrowing and EDISON-3 flow to the distal vessel Recommendations Cardiac Risk Reduction Program Aggressive Medical Therapy Medications Administered Aspirin (any) Prasugrel Diagnostic Cath Approved by: Michael Burnham MD Date/Time: 03/15/2020 10:45:31 <ELECTRONICALLY SIGNED> By: Michael Burnham MD, [facility] 03/15/20 1054 1054 1054John Keri Burnham MD, FACC /INF
--- NOTE | 2020-03-15 13:06 | D ---
[address] [address] DISCHARGE SUMMARY Name: KYLE BLAIR MARIEL Room: [address] Peg Ramirez#: [id number] Admission: 03/14/20 Attend Phys: Michael Burnham MD, Discharge: 03/15/20 Date of : 73 Report #: [id number] THIS REPORT FOR: cc: Sisi Beth Mischelle RNP ~ Michael Burnham MD [facility] DATE OF SERVICE: 03/15/2020 FINAL DISCHARGE DIAGNOSES: 1. Unstable angina. 2. Coronary artery disease. 3. Status post PCI with recanalization of chronic total occlusion of the distal right coronary artery and stenting of the mid left anterior descending. 4. Hyperlipidemia. 5. Hypertension. 6. Type 2 diabetes. 7. Hypothyroidism. PROCEDURES: On 03/14/2000 -- left heart catheterization, left ventriculography, selective coronary arteriography and percutaneous coronary intervention with recanalization of chronic total occlusion of the distal right coronary artery and stenting of the mid LAD. The patient is a very pleasant 45-year-old male with aggressive coronary artery disease, status post multiple prior PCIs. Recently, he presented with recurrent chest discomfort on moderate exertion with radiation up into the neck and throat compatible with angina following an unstable pattern. The patient has underlying aggressive diabetes, hypertension, hyperlipidemia and hypothyroidism. In that context, I performed cardiac catheterization on 03/14/2020, which revealed 100% chronic total occlusion of the distal right coronary artery with 75% narrowing surrounding the acute margin. There was 75-80% tubular narrowing of the mid LAD. Given this data, I elected to perform PCI and recanalized the distal right coronary artery, penetrating the micro channels on the distal right with a Fielder XT wire and ultimately placing a 2.0 x 30 and 2.0 x 8 mm stent in the distal right coronary artery with 0% residual narrowing. I placed one drug-eluting stent surrounding the acute margin with 10% residual narrowing. I also placed one 3.0 x 30 mm Matthew drug-eluting stent in the mid LAD with 0% residual narrowing. Troponin claudia minimally to 0.70 and he had no chest pain post-[place] [address] DISCHARGE SUMMARY Name: KYLE BLAIR II Room: [address]#: [id number] Admission: 03/14/20 Attend Phys: Michael Burnham MD, Discharge: 03/15/20 Date of : 73 Report #: [id number] ambulated in the hallways without difficulty with good hemostasis at the right femoral site of catheterization. Laboratory data on 03/15/2020 revealed sodium of 132, potassium 5.2, BUN 13, creatinine 1.2, glucose 275. Hemoglobin 12.9, white blood cell count 6300 with 222,000 platelets. DISCHARGE MEDICATIONS: The patient was discharged to home on the following medications: Metformin 1000 mg b.i.d. to be resumed on 03/16/2020; Risperdal 4 mg at bedtime; testosterone 200 mg as per prior use, acetaminophen 650 mg p.r.n. minor pain; omeprazole 40 mg daily; prasugrel 10 mg daily, p.r.n. sublingual nitroglycerin 0.4 mg; Zetia 10 mg each day at bedtime, Vascepa 2 capsules b.i.d.; lipase, protease, amylase 2 capsules t.i.d., fenofibrate 160 mg daily, metoprolol tartrate 50 mg b.i.d., aspirin 325 mg daily, Crestor 40 mg daily, Levemir insulin subcutaneously b.i.d. in a sliding scale fashion, Humalog insulin sliding scale as per previously utilized, L-thyroxine 50 mcg daily, lisinopril 20 mg daily, clonidine 0.1 mg b.i.d., furosemide 40 mg daily, vitamin D2/ergocalciferol 1.25 mg daily, gabapentin 300 mg t.i.d., vitamin D/folic acid 5000 units daily, Imdur 30 mg daily, ropinirole 2 mg daily, cyclobenzaprine 10 mg daily. I will plan to see the patient in followup on 04/17/2020 at 10:40 at the [facility] office. Therefore, the patient is discharged to home in stable condition on the aforementioned medications with followup as described above. <ELECTRONICALLY SIGNED> By: Michael Burnham MD, [facility] 03/15/20 1306 0955 1105Jopavithra Burnham MD, [facility] /nt
--- NOTE | 2020-03-15 13:40 | EKG ---
[place] [address] ELECTROCARDIOGRAM REPORT Name: KYLE BLAIR II Room: [address] M.#: [id number] Admission: 03/14/20 Attend Phys: Chen Simon Discharge: 03/15/20 Date of : 73 Date of Service: 03/15/20 0504 Report #: [id number] THIS REPORT FOR: //name// [facility] Test Date: 2020-03-15 Test Time: 05:04:00 Pat Name: KYLE BLAIR Department: Room: [facility] Gender: M Peanut Butter Maker: HANG : 1975 Requested By: Michael Burnham Order Number: [id number] Shruthi MD: Sunny Quiroga Measurements Intervals [place] Rate: 78 P: 36 MT: 157 QRS: 58 QRSD: 88 T: 40 QT: 363 QTc: 414 Interpretive Statements Sinus rhythm Compared to ECG 03/14/2020 11:53:22 T-wave abnormality no longer present ST (T wave) deviation no longer present Electronically Signed On 03-15-2020 13:40:09 COMPOSITE ENGINEER by Sunny Quiroga [email or web address] <ELECTRONICALLY SIGNED> By: Sunny Quiroga MD, FACC 03/15/20 1340 0504 0504 Sunny Quiroga MD, [facility] /EPI
== END 2020-03-15 11:29 | disposition home or self-care (01) ==
LOC: M.CL 07:48 → M.TBA-CV 11:35 → M.2W 16:12
PROVIDERS: ADMIT Internal Medicine; ATTEND Internal Medicine
DX: I25.110 Atherosclerotic heart disease of native coronary artery with unstable angina pectoris (principal); Z20.828 Contact with and (suspected) exposure to other viral communicable diseases; E78.5 Hyperlipidemia, unspecified; I10 Essential (primary) hypertension; E11.9 Type 2 diabetes mellitus without complications; E03.9 Hypothyroidism, unspecified

== ENCOUNTER 2020-06-03 00:06 | Inpatient (IN) | payer OTHER ==
[2020-06-03] VITALS (7 sets, daily range): BP systolic 105–148; BP diastolic 60–94
[~2020-06-03] VITALS: Ht 177.8 cm; Wt 105.4 kg
[~2020-06-03 00:06] MED LIST changes: +ADIPEX-P37.5 MG PO; +CYCLOBENZAPRINE10 MG PO; +FOLIXAPURE5000 UNIT PO; +IMDUR 30 MG TAB30 M1 PO; +ROPINIROLE HCL2 MG PO
[2020-06-03] MEDS ORDERED: REPATHA SY140 MG/1 M SUBQ (00:20)
[2020-06-03 00:57] LABS: ABSOLUTE BASOPHILS 0.1 thou/uL (0.0-0.2); ABSOLUTE EOSINOPHILS 0.1 thou/uL (0.0-0.7); ABSOLUTE LYMPHOCYTES 1.1 thou/uL (0.8-5.3); ABSOLUTE MONOCYTES 1.5 thou/uL (0.0-1.2); ABSOLUTE NEUTROPHILS 8.3 thou/uL (1.6-8.1); BASOPHILS 0.9 %; EOSINOPHILS 1.3 %; HEMATOCRIT 35.7 % (42.0-52.0); HEMOGLOBIN 11.4 gm/dL (14.0-18.0); LYMPHOCYTES 10.3 %; MCH 22.8 pg (26.0-34.0); MCHC 31.8 g/dL (28.0-37.0); MCV 71.6 fL (80.0-100.0); MONOCYTES 13.4 %; MPV 6.9 fl. (7.2-11.1); NUCLEATED RBCS 0 /100WBC; PLATELET COUNT* 254 thou/uL (150-400); POLYS 74.1 %; RBC 4.99 mil/uL (4.50-6.00); RDW-CV 18.6 % (10.5-14.5); WBC 11.2 thou/uL (4.0-11.0)
[2020-06-03 01:05] LABS: CALCIUM 9.5 mg/dL (8.5-10.1); CREATININE 1.5 mg/dL (0.6-1.3); POTASSIUM 4.2 mmol/L (3.5-5.1)
[2020-06-03 01:09] LABS: MAGNESIUM 1.6 mg/dL (1.8-2.4); TOTAL BILIRUBIN 0.5 mg/dL (<0.1-1.0); TOTAL PROTEIN 7.7 g/dL (6.4-8.2)
[2020-06-03 04:03] LABS: URINE BILIRUBIN NEGATIVE (Negative); URINE BLOOD NEGATIVE (Negative); URINE CLARITY CLEAR; URINE COLOR YELLOW; URINE GLUCOSE-RANDOM 3+ (Negative); URINE KETONES 1+ (Negative); URINE LEUKOCYTES-REFLEX NEGATIVE (Negative); URINE NITRITE-REFLEX NEGATIVE (Negative); URINE PROTEIN NEGATIVE (Negative); URINE SPECIFIC GRAVITY 1.025 (1.005-1.030); URINE UROBILINOGEN 0.2 E.U./dl (0.2-1.0)
[2020-06-03 05:14] LABS: ANISOCYTOSIS 1+; HYPOCHROMASIA 1+; MICROCYTES 2+; POLYCHROMASIA Occasional
[2020-06-03 05:15] LABS: OVALOCYTES Occasional
[2020-06-04] VITALS (7 sets, daily range): BP systolic 90–132; BP diastolic 47–87
[2020-06-04 04:05] LABS: GLYCOHEMOGLOBIN (HGB A1C) 10.4 % (4.8-5.6)
[2020-06-04 04:21] LABS: HEMATOCRIT 35.9 % (42.0-52.0); HEMOGLOBIN 11.4 gm/dL (14.0-18.0); MCHC 31.9 g/dL (28.0-37.0); MCV 72.1 fL (80.0-100.0); MPV 7.1 fl. (7.2-11.1); RBC 4.98 mil/uL (4.50-6.00); RDW-CV 18.7 % (10.5-14.5); WBC 9.9 thou/uL (4.0-11.0)
[2020-06-04 04:32] LABS: CALCIUM 8.9 mg/dL (8.5-10.1); CREATININE 1.4 mg/dL (0.6-1.3); POTASSIUM 4.7 mmol/L (3.5-5.1)
[2020-06-05 03:48] VITALS: BP 121/72
[2020-06-05 04:42] LABS: CALCIUM 9.7 mg/dL (8.5-10.1); CREATININE 1.2 mg/dL (0.6-1.3); POTASSIUM 4.1 mmol/L (3.5-5.1)
[2020-06-05 04:55] LABS: ABSOLUTE BASOPHILS 0.1 thou/uL (0.0-0.2); ABSOLUTE EOSINOPHILS 0.2 thou/uL (0.0-0.7); ABSOLUTE LYMPHOCYTES 1.8 thou/uL (0.8-5.3); ABSOLUTE NEUTROPHILS 5.3 thou/uL (1.6-8.1); BASOPHILS 0.8 %; EOSINOPHILS 2.7 %; HEMATOCRIT 36.6 % (42.0-52.0); HEMOGLOBIN 11.7 gm/dL (14.0-18.0); LYMPHOCYTES 21.3 %; MCH 23.2 pg (26.0-34.0); MCV 72.6 fL (80.0-100.0); MONOCYTES 11.7 %; MPV 7.2 fl. (7.2-11.1); NUCLEATED RBCS 0 /100WBC; PLATELET COUNT* 268 thou/uL (150-400); POLYS 63.5 %; RBC 5.04 mil/uL (4.50-6.00); RDW-CV 18.5 % (10.5-14.5); WBC 8.3 thou/uL (4.0-11.0)
[2020-06-05 07:47] VITALS: BP 98/53
[2020-06-05 09:23] LABS: ANISOCYTOSIS 1+; PLATELET ESTIMATE ADEQUATE; POIKILOCYTOSIS 1+
[2020-06-05 15:31] VITALS: BP 124/82
[2020-06-05 20:56] VITALS: BP 134/79
[2020-06-06 04:02] LABS: HEMATOCRIT 37.8 % (42.0-52.0); HEMOGLOBIN 11.9 gm/dL (14.0-18.0); MCH 22.6 pg (26.0-34.0); MCHC 31.5 g/dL (28.0-37.0); MCV 71.6 fL (80.0-100.0); MPV 6.8 fl. (7.2-11.1); RBC 5.28 mil/uL (4.50-6.00); RDW-CV 18.1 % (10.5-14.5); WBC 6.2 thou/uL (4.0-11.0)
[2020-06-06 04:27] LABS: CALCIUM 9.1 mg/dL (8.5-10.1); CREATININE 1.1 mg/dL (0.6-1.3)
[2020-06-06 08:00] VITALS: BP 132/75; BP 141/79
[2020-06-06] MEDS ORDERED: BACTRIM DS TAB1 EACH PO (09:17)
[2020-06-06] MEDS ORDERED: HYDROCODON-ACE1 EAC7 PO (09:17)
[2020-06-06 13:46] VITALS: BP 141/79
== END 2020-06-06 14:43 | disposition home or self-care (01) | DRG 871 ==
LOC: M.ERS 00:06 → M.2W 03:08 → M.TBA-ER 03:08 → M.2W 04:16 → M.ORTHSURG 06-05 19:24
PROVIDERS: Family Medicine; Personal Emergency Response Attendant; Surgery; ADMIT Internal Medicine; ATTEND Internal Medicine
PROC: 0H94XZZ Drainage of Neck Skin, External Approach (ICD-10-PCS; principal; 2020-06-03)
DX: A41.9 Sepsis, unspecified organism (principal); N17.0 Acute kidney failure with tubular necrosis; L03.221 Cellulitis of neck; L02.11 Cutaneous abscess of neck; E87.1 Hypo-osmolality and hyponatremia; K86.1 Other chronic pancreatitis; Z20.822 Contact with and (suspected) exposure to COVID-19; L73.9 Follicular disorder, unspecified; E83.42 Hypomagnesemia; I10 Essential (primary) hypertension; E78.5 Hyperlipidemia, unspecified; I25.10 Atherosclerotic heart disease of native coronary artery without angina pectoris; E03.9 Hypothyroidism, unspecified; I48.0 Paroxysmal atrial fibrillation; D64.9 Anemia, unspecified; E78.00 Pure hypercholesterolemia, unspecified; E11.69 Type 2 diabetes mellitus with other specified complication; G25.81 Restless legs syndrome; Z95.5 Presence of coronary angioplasty implant and graft; Z79.01 Long term (current) use of anticoagulants; Z90.49 Acquired absence of other specified parts of digestive tract; Z79.82 Long term (current) use of aspirin

== ENCOUNTER 2020-06-16 15:00 | Observation (INO) | payer OTHER ==
[~2020-06-16] VITALS: Ht 180.3 cm; Wt 106.6 kg
[~2020-06-16 15:00] MED LIST changes: +BACTRIM DS TAB1 EACH PO; +CLONIDINE HCL0.1 M1 PO; +HYDROCODON-ACE1 EAC7 PO; +REPATHA SY140 MG/1 M SUBQ
[2020-06-16 15:29] VITALS: BP 109/48
[2020-06-16 15:35] LABS: ABSOLUTE BASOPHILS 0.1 thou/uL (0.0-0.2); ABSOLUTE EOSINOPHILS 0.1 thou/uL (0.0-0.7); ABSOLUTE LYMPHOCYTES 1.8 thou/uL (0.8-5.3); ABSOLUTE MONOCYTES 0.5 thou/uL (0.0-1.2); ABSOLUTE NEUTROPHILS 5.7 thou/uL (1.6-8.1); BASOPHILS 0.8 %; HEMATOCRIT 36.9 % (42.0-52.0); LYMPHOCYTES 22.5 %; MCH 23.6 pg (26.0-34.0); MCHC 32.4 g/dL (28.0-37.0); MCV 72.7 fL (80.0-100.0); MONOCYTES 6.1 %; MPV 6.6 fl. (7.2-11.1); NUCLEATED RBCS 0 /100WBC; PLATELET COUNT* 331 thou/uL (150-400); POLYS 69.6 %; RBC 5.07 mil/uL (4.50-6.00); RDW-CV 19.7 % (10.5-14.5); WBC 8.2 thou/uL (4.0-11.0)
[2020-06-16 15:45] LABS: CALCIUM 8.8 mg/dL (8.5-10.1); CREATININE 1.9 mg/dL (0.6-1.3); POTASSIUM 4.6 mmol/L (3.5-5.1)
[2020-06-16 15:56] LABS: TOTAL BILIRUBIN 0.4 mg/dL (<0.1-1.0); TOTAL PROTEIN 7.1 g/dL (6.4-8.2)
--- NOTE | 2020-06-16 16:30 | NUR ---
PT UNABLE TO URINATE AT THIS TIME.
--- NOTE | 2020-06-16 17:29 | NUR ---
PT UNABLE TO URINATE AT THIS TIME.
[2020-06-16 17:37] LABS: CREATININE 1.8 mg/dL (0.6-1.3)
[2020-06-16 19:02] LABS: URINE BILIRUBIN NEGATIVE (Negative); URINE BLOOD NEGATIVE (Negative); URINE CLARITY CLEAR; URINE COLOR YELLOW; URINE GLUCOSE-RANDOM NEGATIVE (Negative); URINE KETONES NEGATIVE (Negative); URINE LEUKOCYTES NEGATIVE (Negative); URINE NITRITE NEGATIVE (Negative); URINE PROTEIN NEGATIVE (Negative); URINE UROBILINOGEN 0.2 E.U./dl (0.2-1.0)
[2020-06-16 21:36] VITALS: BP 104/62
[2020-06-16 22:00] VITALS: BP 106/57
[2020-06-16 23:45] VITALS: BP 116/64
--- NOTE | 2020-06-17 02:53 | NUR ---
PT ADMIT TO ROOM 210 FROM ER. PT SLEEPY ORIENTED. UP AD BERTRAM IN ROOM. TELEMETRY SHOWS SR. NS AT 150MLS/HR STARTED. ON RA.
[2020-06-17 04:25] VITALS: BP 130/69
[2020-06-17 08:50] VITALS: BP 136/858
[2020-06-17 11:22] VITALS: BP 136/85
--- NOTE | 2020-06-17 11:36 | NUR ---
ASSUMED PT CARE AT 0730. PT IS A&OX4. PT UP IN ROOM AD BERTRAM. PT UNDERSTANDS SAFETY MEASURES. ASSESSMENT COMPLETE AND PT DENIES ANY CONCERNS AT THIS TIME. MEDICATIONS ADMINISTERED ORDERED. NEW ORDERS TO DISCHARGE PT TO HOME WITH SPOUSE. PT VERBALIZED UNDERSTANDING OF DISCHARGE ORDERS. PT TRANSFERRED VIA WC WITH NURSING STAFF TO MEET SPOUSE AT ENTRANCE TO EXIT VIA CAR AT APPROX 12NOON.
[2020-06-17 11:41] LABS: CALCIUM 9.1 mg/dL (8.5-10.1); CREATININE 1.3 mg/dL (0.6-1.3); POTASSIUM 4.3 mmol/L (3.5-5.1)
[2020-06-17 11:42] VITALS: BP 136/85
[2020-06-17 11:44] LABS: MAGNESIUM 1.7 mg/dL (1.8-2.4); PHOSPHORUS* 2.4 mg/dL (2.5-4.9)
--- NOTE | 2020-06-17 12:28 | EKG ---
[place] [address] ELECTROCARDIOGRAM REPORT Name: KYLE BLAIR II Room: [address] M.R.#: [id number] Admission: 06/16/20 Attend Phys: George Atwood Discharge: 06/17/20 Date of : 73 Date of Service: 06/16/20 1515 Report #: [id number] THIS REPORT FOR: //name// [facility] ED Test Date: 2020-06-16 Test Time: 15:15:12 Pat Name: KYLE BLAIR Department: Room: [facility] Gender: M Brazer Controlled [employer] Furnace: JANUSZ : 1975 Requested By: Shaila Rea Order Number: [id number] MD: Gerardo Allison Measurements Intervals [place] Rate: 75 P: -11 NM: 151 QRS: 48 QRSD: 91 T: 7 QT: 366 QTc: 409 Interpretive Statements Sinus rhythm ST elev, probable normal early repol pattern Compared to ECG 03/15/2020 05:04:00 ST (T wave) deviation now present Electronically Signed On 06-17-2020 12:28:39 CDT by Gerardo Allison [email or web address] <ELECTRONICALLY SIGNED> By: Jeaneth Allison MD, [facility] 06/17/20 1228 1515 1515 Jeaneth Allison MD, [facility] /EPI
== END 2020-06-17 12:00 | disposition home or self-care (01) ==
LOC: M.ERS 15:00 → M.TBA-ER 18:28 → M.2W 18:28
PROVIDERS: Internal Medicine; Nurse Practitioner Family; ADMIT Internal Medicine; ATTEND Internal Medicine
DX: I95.2 Hypotension due to drugs (principal); Z20.822 Contact with and (suspected) exposure to COVID-19; N17.9 Acute kidney failure, unspecified; E86.9 Volume depletion, unspecified; I11.0 Hypertensive heart disease with heart failure; I50.32 Chronic diastolic (congestive) heart failure; E11.9 Type 2 diabetes mellitus without complications; I48.91 Unspecified atrial fibrillation; I25.10 Atherosclerotic heart disease of native coronary artery without angina pectoris; E78.5 Hyperlipidemia, unspecified; E03.9 Hypothyroidism, unspecified; G47.30 Sleep apnea, unspecified; Z79.82 Long term (current) use of aspirin; Z79.4 Long term (current) use of insulin; Z79.01 Long term (current) use of anticoagulants; Z79.899 Other long term (current) drug therapy

== ENCOUNTER 2020-08-27 16:57 | Inpatient (IN) | payer OTHER ==
[~2020-08-27] VITALS: Ht 180.3 cm; Wt 104.3 kg
[~2020-08-27 16:57] MED LIST changes: -CYCLOBENZAPRINE10 MG PO
[2020-08-27 17:10] VITALS: BP 122/84
[2020-08-27 17:46] LABS: HEMATOCRIT 41.2 % (42.0-52.0); HEMOGLOBIN 18.8 gm/dL (14.0-18.0); MCH 32.9 pg (26.0-34.0); MCHC 45.6 g/dL (28.0-37.0); MCV 72.2 fL (80.0-100.0); MPV 6.7 fl. (7.2-11.1); NUCLEATED RBCS 0 /100WBC; PCO2 VENOUS 34.1 mmHg (41.0-51.0); PLATELET COUNT* 421 thou/uL (150-400); PO2 VENOUS 35.5 mmHg (35.0-45.0); RBC 5.71 mil/uL (4.50-6.00); RDW-CV 18.2 % (10.5-14.5); WBC 25.6 thou/uL (4.0-11.0)
[2020-08-27 18:14] LABS: ABSOLUTE LYMPHOCYTES 1.5 thou/uL (0.8-5.3); ABSOLUTE MONOCYTES 0.5 thou/uL (0.0-1.2); ABSOLUTE NEUTROPHILS 23.6 thou/uL (1.6-8.1); PLATELET ESTIMATE INCREASED
[2020-08-27 18:16] LABS: MACROCYTES Occasional; MICROCYTES Occasional; POTASSIUM 4.2 mmol/L (3.5-5.1)
[2020-08-27 19:29] LABS: CALCIUM 8.5 mg/dL (8.5-10.1)
[2020-08-27 19:30] LABS: ALBUMIN 3.6 g/dL (3.4-5.0); TOTAL PROTEIN 6.5 g/dL (6.4-8.2)
[2020-08-27 19:33] LABS: CREATININE 1.5 mg/dL (0.6-1.3)
[2020-08-27 20:11] LABS: URINE BLOOD NEGATIVE (Negative); URINE CLARITY CLEAR; URINE COLOR YELLOW; URINE GLUCOSE-RANDOM 3+ (Negative); URINE LEUKOCYTES-REFLEX NEGATIVE (Negative); URINE NITRITE-REFLEX NEGATIVE (Negative); URINE PROTEIN 1+ (Negative); URINE UROBILINOGEN 0.2 E.U./dl (0.2-1.0)
[2020-08-27 20:14] LABS: URINE KETONES 3+ (Negative)
[2020-08-27 20:15] LABS: ICTOTEST (BILI CONFIRMATORY) Negative (Negative); URINE BILIRUBIN 2+ (Negative)
[2020-08-27 20:22] VITALS: BP 115/71
[2020-08-27 20:24] VITALS: BP 115/75
[2020-08-27 21:00] VITALS: BP 114/68
[2020-08-27 22:00] VITALS: BP 120/69
[2020-08-27 22:14] LABS: CALCIUM 6.9 mg/dL (8.5-10.1); POTASSIUM 4.4 mmol/L (3.5-5.1)
[2020-08-27 22:24] LABS: ALBUMIN 3.1 g/dL (3.4-5.0); MAGNESIUM 1.3 mg/dL (1.8-2.4); PHOSPHORUS* 4.2 mg/dL (2.5-4.9)
[2020-08-27 22:28] LABS: CREATININE 1.6 mg/dL (0.6-1.3)
[2020-08-27 23:00] VITALS: BP 119/75
[2020-08-28] VITALS (24 sets, daily range): BP systolic 99–136; BP diastolic 59–90
[2020-08-28 01:45] LABS: ALBUMIN 2.6 g/dL (3.4-5.0); CALCIUM 7.6 mg/dL (8.5-10.1); CREATININE 0.9 mg/dL (0.6-1.3); MAGNESIUM 1.9 mg/dL (1.8-2.4); PHOSPHORUS* 2.8 mg/dL (2.5-4.9); POTASSIUM 3.9 mmol/L (3.5-5.1)
[2020-08-28 05:50] LABS: ALBUMIN 2.5 g/dL (3.4-5.0); CALCIUM 7.2 mg/dL (8.5-10.1); CREATININE 0.8 mg/dL (0.6-1.3); MAGNESIUM 2.2 mg/dL (1.8-2.4); PHOSPHORUS* 2.3 mg/dL (2.5-4.9); POTASSIUM 3.9 mmol/L (3.5-5.1)
--- NOTE | 2020-08-28 09:27 | NUR ---
Met with patient at bedside and introduced role of CM. Patient admitted for Elevated troponin and DKA. Currenly on insulin gtt. Patient currently lives with his SO and children in a house. 10 stairs to enter home and stairs that lead to the bedrooms. Patient was independent with ADLs prior to admission. Patient able to ambulate independently. Currently works and drives. Patient uses CPAP at HS. No Hx of HH, SNF/Rehab, BHS, dialysis or infusion therpay. PCP is Sisi Beth. No needs anticpated at discharge. CM to continue to follow for safe dc planning.
[2020-08-28 09:54] LABS: ALBUMIN 2.3 g/dL (3.4-5.0); CREATININE 0.8 mg/dL (0.6-1.3); MAGNESIUM 1.9 mg/dL (1.8-2.4); PHOSPHORUS* 2.5 mg/dL (2.5-4.9)
[2020-08-28 09:56] LABS: POTASSIUM 4.9 mmol/L (3.5-5.1)
--- NOTE | 2020-08-28 10:03 | EKG ---
[place] [address] ELECTROCARDIOGRAM REPORT Name: ROSSYKYLE II Room: [address] ADM IN .R.#: [id number] Admission: 08/27/20 Attend Phys: Hilary Shepard, Discharge: Date of : 73 Date of Service: 08/27/20 1718 Report #: [id number] THIS REPORT FOR: //name// [facility] ED Test Date: 2020-08-27 Test Time: 17:18:42 Pat Name: KYLE BLAIR Department: Room: [facility] Gender: M Tinner Automatic: EDWINA : 1975 Requested By: Rob Hughes Order Number: [id number] MD: Sunny Quiroga Measurements Intervals [place] Rate: 151 P: 50 ND: 115 QRS: 90 QRSD: 81 T: 241 QT: 316 QTc: 502 Interpretive Statements Sinus tachycardia Borderline right axis deviation Nonspecific repol abnormality, diffuse leads Prolonged QT interval Compared to ECG 06/16/2020 15:15:12 Early repolarization now present Prolonged QT interval now present Sinus rhythm no longer present ST (T wave) deviation no longer present Electronically Signed On 08-28-2020 10:03:10 CDT by Sunny Quiroga [email or web address] <ELECTRONICALLY SIGNED> By: Sunny Quiroga MD, FAC 08/28/20 1003 17 17 Sunny Quiroga MD, [facility] /EPI
--- NOTE | 2020-08-28 10:03 | EKG ---
[place] [address] ELECTROCARDIOGRAM REPORT Name: ROSSYKYLE MIKE FLOYD Room: [address] ADM IN .R.#: [id number] Admission: 08/27/20 Attend Phys: Hilary Shepard, Discharge: Date of : 73 Date of Service: 08/27/201816 Report #: [id number] THIS REPORT FOR: //name// 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: : 1975 Requested By: Rob Hughes Order Number: [id number] MD: Sunny Quiroga Measurements Intervals [place] Rate: 133 P: 50 PA: 107 QRS: 72 QRSD: 91 T: 59 QT: 424 QTc: 631 Interpretive Statements Sinus tachycardia Prolonged QT interval Compared to ECG 06/16/2020 15:15:12 Prolonged QT interval now present Sinus rhythm no longer present ST (T wave) deviation no longer present Electronically Signed On 08-28-2020 10:03:34 CDT by Sunny Quiroga [email or web address] <ELECTRONICALLY SIGNED> By: Sunny Quiroga MD, FACC 08/28/20 1003 16 16 Sunny Quiroga MD, FACC /EPI
--- NOTE | 2020-08-28 16:39 | CON ---
[address] [address] CONSULTATION Name: KYLE BLAIR MARIEL Room: [address] IN M.R.#: [id number] Admission: 08/27/20 Attend Phys: Hilary Shepard MD Discharge: Date of : 73 Report #: [id number] THIS REPORT FOR: cc: Sisi Beth,Sunny Maria MD [facility] ~ DOC #: [id number] cc: Michael Burnham MD [facility], Sisi Beth, CHRIST Quiroga MD DATE OF CONSULTATION: 08/28/2020 INDICATIONS: Non-ST elevation myocardial infarction. HISTORY OF PRESENT ILLNESS: The patient is a very pleasant 45-year-old gentleman who was admitted to the hospital with complaints of abdominal pain, nausea and vomiting. He has a history of coronary artery disease with previous percutaneous coronary intervention to the mid left anterior descending coronary artery and the mid to distal right coronary artery. He has preserved LV systolic function by previous studies. He has a history of fairly significant familial hypertriglyceridemia. He has had recurrent bouts of pancreatitis secondary to this. The patient was admitted to the hospital with apparent DKA and pancreatitis. The patient reported abdominal pain, nausea, vomiting and some chest pressure. In this setting, his troponin has elevated to approximately 10. EKG shows a sinus tachycardia without significant ST segment depression or elevation. At the time of interview, the patient's pain has improved significantly. He is no longer having chest pressure. PAST MEDICAL HISTORY: 1. Coronary artery disease with previous percutaneous coronary interventions as outlined above. 2. Familial hypertriglyceridemia. 3. Insulin requiring type 2 diabetes mellitus. 4. Hypertension. 5. Hypothyroidism. 6. History of paroxysmal atrial fibrillation. 7. Obstructive sleep apnea. 8. Chronic diastolic heart failure. HOME MEDICATIONS: Will include aspirin 325 mg daily, Flexeril 10 mg daily, vitamin D2 1250 mcg daily, Repatha 140 mg every 2 weeks, Zetia 10 mg daily, fenofibrate 160 mg daily, furosemide 40 mg daily, gabapentin 300 mg t.i.d. Vascepa 2 grams b.i.d., Levemir 50 units subcutaneous b.i.d., sliding scale insulin, levothyroxine 50 mcg daily, Zenpep DR 5000 units 2 capsules t.i.d., lisinopril 20 mg daily, metformin 1000 mg b.i.d., Lopressor 50 mg b[place]i.d., [place] [address] CONSULTATION Name: KYLE BLAIR II Room: [address] IN [facility].#: [id number] Admission: 08/27/20 Attend Phys: Hilary Shepard MD Discharge: Date of : 73 Report #: [id number] omeprazole 40 mg daily, Effient 10 mg daily, Risperdal 2 mg 2 tablets at bedtime, ropinirole 2 mg daily, Crestor 40 mg daily, Folixapure tablets 5000 units daily. ALLERGIES: No known drug allergies. SOCIAL HISTORY: The patient quit smoking remotely. Drinks alcohol on special occasions. FAMILY HISTORY: Noncontributory. REVIEW OF SYSTEMS: A 14-point review of systems as per HPI, otherwise unremarkable. PHYSICAL EXAMINATION: VITAL SIGNS: Blood pressure 125/71, pulse 108, regular. GENERAL: This is a pleasant gentleman who does not appear to be in distress. HEENT: Head is normocephalic, atraumatic. Extraocular muscles intact. CPAP in place. NECK: Shows no jugular venous distention. CHEST: Examination of chest reveals clear lung hurst. CARDIAC: Reveals a regular rhythm with normal S1 and S2. ABDOMEN: Reveals normal bowel sounds. Abdomen is minimally tender without rebound. EXTREMITIES: Examination of the extremities show no edema. SKIN: Dry. LABORATORY DATA: Labs are reviewed. Sodium 132, potassium 3.9, chloride 101, bicarbonate 20, BUN 13, creatinine 0.8, serum glucose 249. LFTs within normal limits. Lipase 1534, calcium 7.2, phosphorus 2.3, magnesium 2.2. Total protein 6.5, albumin 2.5, EGFR 104. Troponin presently 10.57. White blood cell count is 25.6, hemoglobin 18.8, platelet count 421,000. CTA of the chest shows no evidence of PE and no acute process in the chest. Hepatic steatosis noted. CT abdomen and pelvis, acute pancreatitis with peripancreatic edema and fat stranding. IMPRESSION AND RECOMMENDATIONS: 1. Acute pancreatitis. The patient is currently n.p.o., symptoms improving secondary to hypertriglyceridemia. 2. Diabetic ketoacidosis, improving on insulin drip. 3. Familial hypertriglyceridemia. The patient is on multiple agents. He does follow with [facility]. 4. Non-ST elevation myocardial infarction. The patient appears stable [address] [address] CONSULTATION Name: KYLE BLAIR II Room: [address] IN [facility].#: [id number] Admission: 08/27/20 Attend Phys: Hilary Shepard MD Discharge: Date of : 73 Report #: [id number] hemodynamically. At this point, I will repeat troponin. Hesitant to engage invasive evaluation with possible intervention in the setting of acute pancreatitis and diabetes ketoacidosis. We will follow clinically at this time. 5. Coronary artery disease. The patient continues on aspirin and Effient. 6. Chronic diastolic heart failure, stable at this point in time. 7. Malnutrition. 8. Obstructive sleep apnea. The patient is compliant with CPAP. MD MYNOR Hernandez/STEFANIAU <ELECTRONICALLY SIGNED> By: Sunny Quiroga MD, [facility] 08/28/20 1639 0832 [id number] Quiroga MD, [facility] /nt
--- NOTE | 2020-08-28 17:50 | NUR ---
DKA PROTOCOL DC'D THIS AFTERNOON. IVF CHANGED TO NS AT 100 MLS/HR PER DR BELTRAN. PT TOLERATING CLR LIQUIDS. PAIN PARTIALLY MANAGED BY FENTANYL. VOIDING PER URINAL. VSS.
[2020-08-29] VITALS (9 sets, daily range): BP systolic 100–123; BP diastolic 60–76
--- NOTE | 2020-08-29 10:34 | 2DMMODE ---
[place] [address] 2 D/M-MODE ECHOCARDIOGRAM Name: KYLE BLAIR II Room: [address] IN [facility]#: [id number] Admission: 08/27/20 Attend Phys: Hilary Shepard, Discharge: Date of : 73 Date of Service: 08/29/20 1034 Report #: [id number] THIS REPORT FOR: cc: Sisi Beth Mischelle RNP Blick, David R. MD [facility] ~ APPROVED REPORT Study performed: 08/29/2020 09:29:45 EXAM: Comprehensive 2D, Doppler, and color-flow Echocardiogram Patient Location: In-Patient Room #: 001 Status: routine BSA: 2.24 HR: 98 bpm BP: 134/90 mmHg Rhythm: NSR Other Information Study Quality: Excellent Indications Acute PA 2D Dimensions IVSd: 11.87 (7-11mm) LVOT Diam: 19.41 (18-24mm) LVDd: 45.44 mm PWd: 10.06 (7-11mm) Ascending Ao: 31.02 (22-36mm) LVDs: 31.95 (25-40mm) Aortic Root: 31.15 mm Volumes Left Atrial Volume (Systole) LA ESV Index: 25.10 mL/m2 Aortic Valve AoV Peak Marc.: 1.41 m/s AO Peak Gr.: 7.97 mmHg LVOT Max P.59 mmHg AO Mean Gr.: 4.88 mmHg LVOT Mean P.24 mmHg LVOT Max V: 1.28 m/s AO V2 VTI: 25.70 cm LVOT Mean V: 0.82 m/s CLAUDIA (VTI): 2.89 cm2 LVOT V1 VTI: 25.08 [place] [address] 2 D/M-MODE ECHOCARDIOGRAM Name: KYLE BLAIR II Room: [address] IN [facility]#: [id number] Admission: 08/27/20 Attend Phys: Hilary Shepard, Discharge: Date of : 73 Date of Service: 08/29/20 1034 Report #: [id number] Mitral Valve E/A Ratio: 1.17 MV Decel. Time: 161.61 ms MV E Max Marc.: 0.97 m/s MV PHT: 46.87 ms MVA (PHT): 4.69 cm2 TDI E/Lateral E': 5.39 E/Medial E': 6.47 Medial E' Marc.: 0.15 m/s Lateral E' Marc.: 0.18 m/s Pulmonary Valve PV Peak Marc.: 0.91 m/s PV Peak Gr.: 3.29 mmHg Left Ventricle The left ventricle is normal size. There is normal LV segmental wall motion. There is normal left ventricular wall thickness. Left ventricular systolic function is normal. The left ventricular ejection fraction is within the normal range. LVEF is 55-60%. The left ventricular diastolic function is normal. Right Ventricle The right ventricle is normal size. The right ventricular systolic function is normal. Atria The left atrium size is normal. The right atrium size is normal. Aortic Valve The aortic valve is normal in structure. No aortic regurgitation is present. There is no aortic valvular stenosis. Mitral Valve The mitral valve is normal in structure. Mild mitral regurgitation. No evidence of mitral valve stenosis. Tricuspid Valve The tricuspid valve is normal in structure. Unable to assess PA pressure. Trace tricuspid regurgitation. Pulmonic Valve The pulmonary valve is normal in structure. There is no pulmonic [place] [address] 2 D/M-MODE ECHOCARDIOGRAM Name: KYLE BLAIR MARIEL Room: [address] IN [facility]#: [id number] Admission: 08/27/20 Attend Phys: Hilray Shepard, Discharge: Date of : 73 Date of Service: 08/29/20 1034 Report #: [id number] Great Vessels The aortic root is normal in size. IVC is normal in size and collapses >50% with inspiration. Pericardium There is no pericardial effusion. <Conclusion> Left ventricular systolic function is normal. The left ventricular ejection fraction is within the normal range. <ELECTRONICALLY SIGNED> By: Paolo Rowell MD, [facility] 08/29/20 1034 1034 1034 Paolo Rowell MD, FAC /INF
--- NOTE | 2020-08-29 15:54 | NUR ---
ICU ROUNDS: PT IS PROGRESSING TOWARDS GOALS. THE PLAN OF CARE IS FOR PT TO HAVE CATH PLACED TOMORROW. DKA PROTOCOL DC'D.
[2020-08-30] VITALS (22 sets, daily range): BP systolic 88–141; BP diastolic 45–92
[2020-08-30 08:42] LABS: ABSOLUTE EOSINOPHILS 0.1 thou/uL (0.0-0.7); ABSOLUTE LYMPHOCYTES 0.7 thou/uL (0.8-5.3); ABSOLUTE MONOCYTES 0.3 thou/uL (0.0-1.2); ABSOLUTE NEUTROPHILS 2.5 thou/uL (1.6-8.1); BASOPHILS 0.9 %; EOSINOPHILS 3.1 %; HEMATOCRIT 31.6 % (42.0-52.0); LYMPHOCYTES 19.5 %; MCH 23.7 pg (26.0-34.0); MCV 71.8 fL (80.0-100.0); MONOCYTES 6.9 %; MPV 6.9 fl. (7.2-11.1); NUCLEATED RBCS 0 /100WBC; POLYS 69.6 %; RBC 4.41 mil/uL (4.50-6.00); RDW-CV 18.1 % (10.5-14.5); WBC 3.6 thou/uL (4.0-11.0)
[2020-08-30 08:43] LABS: CALCIUM 8.2 mg/dL (8.5-10.1); CREATININE 0.8 mg/dL (0.6-1.3)
[2020-08-30 08:47] LABS: HEMOGLOBIN 10.5 gm/dL (14.0-18.0); PLATELET COUNT* 209 thou/uL (150-400)
[2020-08-30 10:11] LABS: CHOLESTEROL 260 mg/dL (<200); HDL CHOLESTEROL 17 mg/dL (>40); TC:HDL 15.3 Ratio (Not establshd); TRIGLYCERIDE 1104 mg/dL (<150); VLDL 221 mg/dL (<40)
[2020-08-30 10:15] LABS: LDL CHOLESTEROL ND mg/dL (<100)
[2020-08-30 10:16] LABS: SERUM ASSESSMENT Clear
--- NOTE | 2020-08-30 13:27 | NUR ---
ICU Rounds: Patient to have cath today with plans to discharge tomorrow per [facility]. Patient does not qualify for [employer] (over income). Provided patient with PCP and community resources so that patient can get connected with a doctor that will see uninsured patients. Patient will eventually need to see a specialist for his chronic pancreatitis and a PCP can help to facilitate that. No other needs anticipated for discharge. CM to complete DPOA paperwork. Patient expressed the desire to complete when talking with Med [facility]ist.
[2020-08-30 22:14] LABS: AMP/METHAMP Negative (Negative); BARBITURATES Negative (Negative); BENZODIAZEPINES POSITIVE (Negative); COCAINE Negative (Negative); METHADONE Negative (Negative); OPIATES Negative (Negative); PCP Negative (Negative); THC Negative (Negative)
[2020-08-31] VITALS: BP 134/83
[2020-08-31 02:06] LABS: GLYCOHEMOGLOBIN (HGB A1C) 12.1 % (4.8-5.6)
[2020-08-31 04:00] VITALS: BP 127/78
[2020-08-31 04:26] LABS: ABSOLUTE EOSINOPHILS 0.1 thou/uL (0.0-0.7); ABSOLUTE LYMPHOCYTES 1.2 thou/uL (0.8-5.3); ABSOLUTE MONOCYTES 0.3 thou/uL (0.0-1.2); ABSOLUTE NEUTROPHILS 1.9 thou/uL (1.6-8.1); BASOPHILS 1.1 %; HEMATOCRIT 33.5 % (42.0-52.0); HEMOGLOBIN 11.3 gm/dL (14.0-18.0); LYMPHOCYTES 32.7 %; MCHC 33.6 g/dL (28.0-37.0); MCV 71.5 fL (80.0-100.0); MONOCYTES 9.4 %; MPV 6.8 fl. (7.2-11.1); NUCLEATED RBCS 0 /100WBC; PLATELET COUNT* 232 thou/uL (150-400); POLYS 53.8 %; RBC 4.69 mil/uL (4.50-6.00); RDW-CV 17.9 % (10.5-14.5); WBC 3.6 thou/uL (4.0-11.0)
[2020-08-31 05:00] LABS: ALBUMIN 2.6 g/dL (3.4-5.0); CALCIUM 8.3 mg/dL (8.5-10.1); CREATININE 0.9 mg/dL (0.6-1.3); POTASSIUM 3.8 mmol/L (3.5-5.1); TOTAL BILIRUBIN 0.3 mg/dL (<0.1-1.0)
[2020-08-31 06:21] LABS: ANISOCYTOSIS 1+; HYPOCHROMASIA 1+; MICROCYTES 2+
--- NOTE | 2020-08-31 06:53 | NUR ---
PT SLEPT MOST OF SHIFT. ASSESSMENT DOCUMENTED. MEDS GIVEN PER E-APR. IV PATENT, FLUIDS FINISHED INFUSING. NO REPORTS OF PAIN. CATH SITE REMAINED C/D/I, NO SIGNS OF HEMATOMA. PT ABLE TO MAKE NEEDS KNOWN. WILL CONTINUE WITH PLAN OF CARE.
[2020-08-31 07:40] VITALS: BP 124/71
--- NOTE | 2020-08-31 10:34 | EKG ---
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 : 1975 Requested By: Paolo Rowell Order Number: [id number] MD: Paolo Rowell Measurements Intervals [place] Rate: 84 P: 65 VA: 168 QRS: 60 QRSD: 92 T: 43 QT: 372 QTc: 440 Interpretive Statements Sinus rhythm Baseline wander in lead(s) V2 Compared to ECG 08/27/2020 18:17:20 Sinus tachycardia no longer present Prolonged QT interval no longer present Electronically Signed On 08-31-2020 10:34:12 CDT by Paolo Rowell [email or web address] <ELECTRONICALLY SIGNED> By: Paolo Rowell MD, [facility] 08/31/20 1034 0434 0434 Paolo Rowell MD, [facility] /EPI
[2020-08-31 12:23] VITALS: BP 133/86
[2020-08-31 12:44] VITALS: BP 138/89
[2020-08-31 14:28] VITALS: BP 123/88
--- NOTE | 2020-08-31 14:50 | NUR ---
PT A&OX4 VSS. PT UP AD BERTRAM, GAIT STEADY. ACCUCHECKS, SLIDING SCALE INSULIN ADMINISTERED ORDERED. CATH SITE TO R GROIN C/D/I. IV TO LAC AND RAC PATENT AT TIME OF ASSESSMENT, LINES DC'D PRIOR TO PT LEAVING UNIT. SINUS ON MONITOR. PT REMAINS ON ROOM AIR. PT STATES UNDERSTANDING OF DC INSTRUCTIONS AND FOLLOW UP PROVIDED. PT DRESSED INDEPENDENTLY. PT TRANSPORTED TO EXIT IN WHEELCHAIR BY NURSING STAFF.
--- NOTE | 2020-09-05 12:58 | CARD ---
[address] [address] CARDIAC CATH REPORT Name: ROSSYKYLE MCKEON II Room: [address] IN [facility]#: [id number] Admission: 08/27/20 Attend Phys: Hilary Shepard MD Discharge: 08/31/20 Date of : 73 Report #: [id number] THIS REPORT FOR: cc: Sisi Beth Mischelle RNP Blick, David R. MD [facility] ~ ADDENDUM APPROVED REPORT Study performed: 08/30/2020 09:03:31 Patient Details Patient Status: In-Patient Room #: ICU2 The patient is a 45 year-old male Event Personnel Darian Arambula Reeves, Adam RTR Monitor, Sunny Quiroga Dietary Assistant, Paolo Rowell Trucker Hand, Abiola Conway RN drill operator Performed Left Heart Cath w/or w/o Coronaries [id number] [facility] Place w/wo Plasty Single RCA [id number] Hemostasis w/ Angioseal Indication Non-STEMI , Chest pain Risk Factors Hypercholesterolemia, Hypertension, Diabetes Previous Procedures/Diagnoses Previous PCI Admission/Lab Medications/Medications given during procedure Heparin Unfract., Fentanyl IV 50 mcg, Midazolam (Versed) IV 2 mg, Lidocaine Subcut 20 ml, Fentanyl IV 25 mcg, Midazolam (Versed) IV 1 mg, Heparin IV 7000 units, Heparin IV 3000 units Procedure Narrative The patient was brought electively to the Cardiac Catheterization Laboratory and was prepped and draped in a sterile manner. The right femoral was infiltrated with 2% Lidocaine subcutaneous anesthesia. IV conscious sedation was used throughout procedure with appropriate monitoring and was performed in the presence of a registered nurse who was an independent trained observer [place] [address] CARDIAC CATH REPORT Name: KYLE BLAIR MIKE FLOYD Room: [address]#: [id number] Admission: 08/27/20 Attend Phys: Hilary Shepard MD Discharge: 08/31/20 Date of : 73 Report #: [id number] performing the procedure. A Trona 6 FR sheath was inserted into the right femoral artery. Coronary angiography was performed using coronary diagnostic catheters. The right coronary system was accessed and visualized with a Diagnostic JR4 6Fr catheter. The left coronary system was accessed and visualized with a Diagnostic JL4 6Fr catheter. The left ventricle was accessed and visualized with a Diagnostic Pigtail 6Fr catheter. Left ventricular/Aortic Valve gradient assessed via catheter pullback. Left ventriculogram was performed in VIET[place]ESE projection. Closure device was deployed with a 6 Fr Angioseal. The patient tolerated the procedure well and there were no complications associated with the procedure. There was no hematoma. Intraoperative Conscious Sedation Sedation start time: 1157 Case end Time: 1239 Fentanyl 75 mcg Versed 3 mg Fluoro Time: 4.9 minutes Dose: DAP 10203 cGycm2 1555.88 mGy Contrast Type and Amount: Omnipaque 190 ml Coronary Angiography The patient's coronary anatomy is right dominant. Diagnostic Cath Left Main The left main coronary artery is normal and bifurcates into a left anterior descending and circumflex coronary artery. LAD There is a widely patent stent in the midportion of the LAD. The remainder the vessel is free of significant disease. Diagonal 1 A large first diagonal branch has minimal plaquing proximally but is free of significant disease. Diagonal 2 A small second diagonal branch appears normal. Circumflex The circumflex coronary artery appears mildly plaqued up to 10% proximally and in its midportion. OM1 A small first obtuse marginal branch is free of significant disease. OM2 A small second obtuse marginal branch is free of significant disease. Right Coronary The right coronary artery is without significant disease in the proximal portion. There is a stent extending from the mid to distal right coronary artery. Distally there is 90% in-stent restenosis noted. R PDA The right PDA is free [place] [address] CARDIAC CATH REPORT Name: KYLE BLAIR II Room: [address] IN M.R.#: [id number] Admission: 08/27/20 Attend Phys: Hilary Shepard MD Discharge: 08/31/20 Date of : 73 Report #: [id number] RPLV The right posterior lateral LV branch is free of significant disease. Left Ventriculography The left ventricle is normal in size with normal contractility. The left ventricular ejection fraction is estimated to be 60-65%. Left ventricular wall motion abnormalities are not present. Hemodynamics The aortic pressure is 137/90 mmHg with a mean of 92 mmHg. The left ventricular pressure is 133/10 mmHg with a mean of mmHg. The left ventricular end diastolic pressure is 25 mmHg. There was no gradient across the aortic valve upon pullback. Pullback from the left ventricle to the aorta revealed no gradient across the aortic valve. PCI Technique Lesion Anticoagulation was achieved with Heparin. 7000 Patient was preloaded with Effient. Percutaneous coronary intervention was performed on the distal right coronary artery. The lesion stenosis prior to intervention was 90% with EDISON 3 flow. A 6F JR 4.0 Guide Catheter was used to engage the Right ostium. A BMW 190cm Interventional Guidewire was used to cross the lesion. BALLOON DILATION A Balloon catheter Euphora SC 2.5x12 was inserted and inflated up to 14.00atm for 19seconds. Repeat angiography revealed the following post-dilatation results: 50% stenosis. STENT DEPLOYMENT A drug-eluting stent Xience Adela 3.0X23mm was inserted and inflated up to 10.00atm for 14seconds. Repeat angiography revealed the following post-stent deployment results: 0% stenosis. Additional Inflation: 12.00atm for 9seconds. Additional Inflation: 18.00atm for 8seconds. Final angiography reveals 0 % stenosis with EDISON 3 flow. Conclusion 1. Widely patent stent in the mid left interesting coronary artery. 2. 90% in-stent restenosis in the distal right coronary artery. 3. Normal left-ventricular systolic function. [address] [address] CARDIAC CATH REPORT Name: KYLE BLAIR II Room: M.209-P DIS IN M.R.#: [id number] Admission: 08/27/20 Attend Phys: Hilary Shepard MD Discharge: 08/31/20 Date of : 73 Report #: [id number] 4. Moderately elevated left ventricular end-diastolic pressure. 5. successful placement of a drug eluting stent in the distal RCA for instent restenosis. Recommendations 1. Status post percutaneous coronary intervention to the in-stent restenosis in the distal right coronary artery. 2. Continue aggressive risk factor modification. Diagnostic Cath Approved by: Sunny Quiroga MD Date/Time: <ELECTRONICALLY SIGNED> By: Paolo Rowell MD, [facility] 09/05/20 1258 1258 1258Paolo Rowell MD, [facility] /INF
== END 2020-08-31 14:50 | disposition home or self-care (01) | DRG 246 ==
LOC: M.ERS 16:57 → M.TBA-ER 18:56 → M.ICU 18:56 → M.2W 08-30 16:13
PROVIDERS: Emergency Medicine Emergency Medical Services; Internal Medicine; ADMIT Internal Medicine; ATTEND Internal Medicine
PROC: 5A09357 Assistance with Respiratory Ventilation, Less than 24 Consecutive Hours, Continuous Positive Airway Pressure (ICD-10-PCS; principal; 2020-08-27)
PROC: 5A09357 Assistance with Respiratory Ventilation, Less than 24 Consecutive Hours, Continuous Positive Airway Pressure (ICD-10-PCS; 2020-08-28)
PROC: 5A09457 Assistance with Respiratory Ventilation, 24-96 Consecutive Hours, Continuous Positive Airway Pressure (ICD-10-PCS; 2020-08-29)
PROC: 027034Z Dilation of Coronary Artery, One Artery with Drug-eluting Intraluminal Device, Percutaneous Approach (ICD-10-PCS; 2020-08-30)
PROC: B2111ZZ Fluoroscopy of Multiple Coronary Arteries using Low Osmolar Contrast (ICD-10-PCS; 2020-08-30)
PROC: 4A023N7 Measurement of Cardiac Sampling and Pressure, Left Heart, Percutaneous Approach (ICD-10-PCS; 2020-08-30)
PROC: B2151ZZ Fluoroscopy of Left Heart using Low Osmolar Contrast (ICD-10-PCS; 2020-08-30)
DX: I21.4 Non-ST elevation (NSTEMI) myocardial infarction (principal); E11.10 Type 2 diabetes mellitus with ketoacidosis without coma; K85.90 Acute pancreatitis without necrosis or infection, unspecified; I50.43 Acute on chronic combined systolic (congestive) and diastolic (congestive) heart failure; E46 Unspecified protein-calorie malnutrition; K86.1 Other chronic pancreatitis; E03.9 Hypothyroidism, unspecified; G25.81 Restless legs syndrome; I25.10 Atherosclerotic heart disease of native coronary artery without angina pectoris; I11.0 Hypertensive heart disease with heart failure; G47.33 Obstructive sleep apnea (adult) (pediatric); I48.0 Paroxysmal atrial fibrillation; E78.1 Pure hyperglyceridemia; D64.9 Anemia, unspecified; Z20.822 Contact with and (suspected) exposure to COVID-19; Z90.49 Acquired absence of other specified parts of digestive tract; Z95.5 Presence of coronary angioplasty implant and graft; Z68.32 Body mass index [BMI] 32.0-32.9, adult; Z79.4 Long term (current) use of insulin

== ENCOUNTER 2020-09-13 16:27 | Emergency (ER) | payer OTHER ==
[~2020-09-13] VITALS: Ht 180.3 cm; Wt 102.5 kg
[2020-09-13 16:54] LABS: HEMATOCRIT 42.5 % (42.0-52.0); HEMOGLOBIN 14.5 gm/dL (14.0-18.0); MCH 24.9 pg (26.0-34.0); MCHC 34.2 g/dL (28.0-37.0); MCV 72.7 fL (80.0-100.0); MPV 7.1 fl. (7.2-11.1); NUCLEATED RBCS 0 /100WBC; PLATELET COUNT* 316 thou/uL (150-400); RBC 5.85 mil/uL (4.50-6.00); RDW-CV 19.7 % (10.5-14.5); WBC 14.4 thou/uL (4.0-11.0)
[2020-09-13 17:32] LABS: ABSOLUTE BASOPHILS 0.3 thou/uL (0.0-0.2); ABSOLUTE LYMPHOCYTES 0.1 thou/uL (0.8-5.3); ABSOLUTE MONOCYTES 0.1 thou/uL (0.0-1.2); ABSOLUTE NEUTROPHILS 13.8 thou/uL (1.6-8.1); PLATELET ESTIMATE ADEQUATE
[2020-09-13 17:33] LABS: ANISOCYTOSIS 1+; MICROCYTES 1+
[2020-09-13 18:32] LABS: ANION GAP 11 mmol/L (7-16); BUN 18 mg/dL (7-18); CALCIUM 7.5 mg/dL (8.5-10.1); CHLORIDE 96 mmol/L (98-107); CO2 24 mmol/L (21-32); CREATININE 2.1 mg/dL (0.6-1.3); SODIUM 131 mmol/L (136-145)
[2020-09-13 18:34] LABS: POTASSIUM 4.3 mmol/L (3.5-5.1)
[2020-09-13 18:35] LABS: GLUCOSE 304 mg/dL (70-99)
[2020-09-13 18:46] LABS: ALBUMIN 2.8 g/dL (3.4-5.0); ALKALINE PHOSPHATASE 43 U/L (46-116); CK-MB MASS 1.2 ng/mL (<0.5-3.6); LIPASE 1202 U/L (73-393); MAGNESIUM 1.3 mg/dL (1.8-2.4); NT-PRO BRAIN NAT PEPTIDE 459 pg/mL (<300); TOTAL BILIRUBIN 1.1 mg/dL (<0.1-1.0); TOTAL PROTEIN 6.4 g/dL (6.4-8.2)
[2020-09-13 19:13] LABS: SGOT 21 U/L (15-37)
[2020-09-13 19:23] LABS: SGPT < 6 U/L (30-65)
[2020-09-13 20:00] VITALS: BP 98/62
--- NOTE | 2020-09-14 14:21 | EKG ---
[place] [address] ELECTROCARDIOGRAM REPORT Name: KYLE BLAIR II Room: [facility]#: [id number] Admission: 09/13/20 Attend Phys: Discharge: 09/13/20 Date of : 73 Date of Service: 09/13/20 1632 Report #: [id number] THIS REPORT FOR: //name// 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 09/14/20 1421 1632 1632 Michael Burnham MD, [facility] /EPI
== END 2020-09-13 20:00 | disposition short-term general hospital (02) ==
LOC: M.ERS 16:27
PROVIDERS: Family Medicine
DX: A41.9 Sepsis, unspecified organism (principal); Z20.822 Contact with and (suspected) exposure to COVID-19; N17.9 Acute kidney failure, unspecified; I95.9 Hypotension, unspecified; K85.90 Acute pancreatitis without necrosis or infection, unspecified